=== PATIENT | female | born 1990 | race Two or more races ===

== ENCOUNTER 2018-01-26 13:31 | Outpatient (CLI) | payer MEDICAID ==
[2018-01-26 18:49] LABS: BASOPHILS % (AUTO) 0.4 %; EOSINOPHILS # (AUTO) 0.1 10^3/uL (0.0-0.7); EOSINOPHILS % (AUTO) 0.9 %; LYMPHOCYTES # (AUTO) 2.2 10^3/uL (1.5-3.5); LYMPHOCYTES % (AUTO) 26.8 %; MEAN CORPUSCULAR HGB CONC 32.9 g/dL (32.0-36.0); MEAN CORPUSCULAR VOLUME 87.9 fL (81.0-99.0); MEAN PLATELET VOLUME 11.3 fL (7.9-10.8); MONOCYTES # (AUTO) 0.5 10^3/uL (0.0-1.0); MONOCYTES % (AUTO) 6.3 %; NEUTROPHILS # (AUTO) 5.5 10^3/uL (1.5-6.6); NEUTROPHILS % (AUTO) 65.6 %; PLT - PLATELET COUNT 196 10^3/uL (130-450); RED BLOOD COUNT 4.49 10^6/uL (4.20-5.40); RED CELL DISTRIBUTION WIDTH 14.2 % (12.0-15.0); WHITE BLOOD COUNT 8.4 x10^3/uL (4.8-10.8)
[2018-01-26 19:26] LABS: ALBUMIN 4.2 g/dL (3.2-5.5); ALBUMIN/GLOBULIN RATIO 1.1 (1.0-2.2); BILIRUBIN,TOTAL 0.7 mg/dL (0.2-1.0); CALCIUM 8.6 mg/dL (8.5-10.3); CREATININE 0.6 mg/dL (0.4-1.0); TOTAL PROTEIN 7.9 g/dL (6.7-8.2)
[2018-01-26 19:38] LABS: THYROID STIMULATING HORMONE 0.78 uIU/mL (0.34-5.60)
[2018-01-26 19:49] LABS: FOLATE 8.28 ng/mL (5.90 - >24.8)
== END 2018-01-26 23:59 ==
LOC: LAB.N 13:31
PROVIDERS: ATTEND Nurse Practitioner
DX: R53.83 Other fatigue (principal); E55.9 Vitamin D deficiency, unspecified
CPT/HCPCS: 36415; 80053; 82306; 82607; 82746; 84443; 85025

== ENCOUNTER 2018-05-28 08:00 | Outpatient (CLI) | payer MEDICAID | END 2018-05-28 23:59 | disposition home or self-care (01) | LOC: LAB.R 08:00 | PROVIDERS: ATTEND Nurse Practitioner | DX: J03.90 Acute tonsillitis, unspecified (principal) | CPT/HCPCS: 87070 ==

== ENCOUNTER 2020-01-16 18:49 | Outpatient (CLI) | payer MEDICAID | END 2020-01-16 18:50 | disposition home or self-care (01) | LOC: COV 18:49 | PROVIDERS: ATTEND Family Medicine | DX: R50.9 Fever, unspecified (principal); R05 Cough; R06.02 Shortness of breath; M79.10 Myalgia, unspecified site; R53.83 Other fatigue; J02.9 Acute pharyngitis, unspecified; R19.7 Diarrhea, unspecified; R09.81 Nasal congestion; Z20.828 Contact with and (suspected) exposure to other viral communicable diseases ==

== ENCOUNTER 2020-04-10 08:00 | Outpatient (CLI) | payer MEDICAID ==
[2020-04-10 17:45] LABS: BILIRUBIN,URINE NEGATIVE (NEGATIVE); GLUCOSE, URINE (UA) NEGATIVE (NEGATIVE); KETONES,URINE (UA) NEGATIVE (NEGATIVE); LEUKOCYTE ESTERASE, URINE NEGATIVE (NEGATIVE); NITRITE,URINE NEGATIVE (NEGATIVE); OCCULT BLOOD,URINE SMALL (NEGATIVE); PH,URINE 6.5 PH (5.0-7.5); PROTEIN,URINE NEGATIVE (NEGATIVE); UROBILINOGEN,URINE 0.2 (NORMAL) E.U./dL (NORMAL)
[2020-04-10 17:46] LABS: CLARITY,URINE CLEAR (CLEAR)
[2020-04-10 17:59] LABS: BACTERIA,URINE Rare /HPF (None Seen); RBC,URINE 0-5 /HPF (0-5); SQUAMOUS EPITHELIAL CELL,UR RARE Squamous (<= Few)
== END 2020-04-10 23:59 | disposition home or self-care (01) ==
LOC: LAB.R 08:00
PROVIDERS: ATTEND Nurse Practitioner Obstetrics & Gynecology
DX: Z32.01 Encounter for pregnancy test, result positive (principal)
CPT/HCPCS: 81001; 87086

== ENCOUNTER 2020-04-25 11:35 | Outpatient (CLI) | payer MEDICAID ==
--- NOTE | 2020-04-25 18:40 | Ultrasound Report ---
PROCEDURE: OB First Trimester w/TV INDICATIONS: POSITIVE TEST OUTSIDE/PRIOR DATING DATA: Last menstrual period (LMP): 03/07/2020. LMP-based estimated date of delivery (KELVIN): 12/12/2020. First dating scan (date and location): Today. Estimated date of delivery (KELVIN) from first dating scan: 12/14/2020. TECHNIQUE: Real-time scanning was performed of the fetus and maternal pelvic organs, with image documentation. Endovaginal scanning was also performed to better visualize the fetus and maternal ovaries. COMPARISON: None FINDINGS: The uterus is anteverted. There is a single gestational sac noted within the endometrium. There is a small region of echogenicity encompassing less than 25% of the gestational sac consistent with perigestational hemorrhage. Embryo: There is a single living fetus with heart rate of 135 bpm. [place]-rump length correspon ds to gestational age of 6 weeks 5 days. There is a yolk sac measuring 4 mm in diameter. Measurement variability in dating: +/- 4 weeks by LMP, +/- 7 days by mean sac diameter (use before 6 weeks gestation if crown-rump length not able to be measured), +/- 5 days by crown-rump length (6-12 weeks gestation). Maternal organs: The right ovary and measures 5.0 x 3.3 x 3.1 cm. The left ovary measures 1.8 x 1.3 x 2.0 cm. Within the right ovary is an anechoic cystic lesion with subtle debris noted on a single ruth e favoring a retractile clot. This demonstrates peripheral vascularity. This measures 2.5 cm in great est diameter. An additional adjacent anechoic simple cyst likely representing a dominant follicle vinny suring 1.7 cm in greatest diameter. IMPRESSION: Single living intrauterine with heart rate of 135 bpm. Gestational age corresponds to 6 weeks 5 days by crown-rump length. Estimated date of delivery is 12/14/2020. Small amount of perigestational hemorrhage encompassing less than 25% of the gestational sac. This is a common finding. 2.5 cm hemorrhagic corpus luteal cyst in the right ovary along with an adjacent 1.7 cm dominant folli basil. Reviewed by: Servando Cook DO on 04/25/2020 5:39 PM [place] Approved by: Servando Cook DO on 04/25/2020 5:39 PM [place] Station ID: [id number]
== END 2020-04-25 11:36 | disposition home or self-care (01) ==
LOC: DI 11:35
PROVIDERS: ATTEND Nurse Practitioner Obstetrics & Gynecology
DX: Z32.01 Encounter for pregnancy test, result positive (principal)

== ENCOUNTER 2020-05-22 14:08 | Outpatient (CLI) | payer MEDICAID ==
[2020-05-22 18:36] LABS: BASOPHILS % (AUTO) 0.2 %; EOSINOPHILS # (AUTO) 0.1 10^3/uL (0.0-0.7); EOSINOPHILS % (AUTO) 0.9 %; HCT - HEMATOCRIT 36.2 % (37.0-47.0); HGB - HEMOGLOBIN 11.7 g/dL (12.0-16.0); LYMPHOCYTES % (AUTO) 19.7 %; MEAN CORPUSCULAR HEMOGLOBIN 27.4 pg (27.0-31.0); MEAN CORPUSCULAR HGB CONC 32.3 g/dL (32.0-36.0); MEAN CORPUSCULAR VOLUME 84.8 fL (81.0-99.0); MEAN PLATELET VOLUME 11.7 fL (7.9-10.8); MONOCYTES # (AUTO) 0.8 10^3/uL (0.0-1.0); MONOCYTES % (AUTO) 7.6 %; NEUTROPHILS # (AUTO) 7.3 10^3/uL (1.5-6.6); NEUTROPHILS % (AUTO) 71.1 %; PLT - PLATELET COUNT 214 10^3/uL (130-450); RED BLOOD COUNT 4.27 10^6/uL (4.20-5.40); RED CELL DISTRIBUTION WIDTH 14.6 % (12.0-15.0); WHITE BLOOD COUNT 10.3 x10^3/uL (4.8-10.8)
[2020-05-22 19:09] LABS: BUN - BLOOD UREA NITROGEN 10 mg/dL (6-20); CARBON DIOXIDE - CO2 24 mmol/L (21-32); CHLORIDE 105 mmol/L (101-111); CREATININE 0.4 mg/dL (0.4-1.0); GFR - MDRD 187 (>89); GLUCOSE 101 mg/dL (70-100); POTASSIUM 3.9 mmol/L (3.5-5.0); SODIUM 139 mmol/L (135-145)
[2020-05-22 19:10] LABS: ALBUMIN 3.2 g/dL (3.2-5.5); ALKALINE PHOSPHATASE 89 IU/L (42-121); ALT ALANINE AMINOTRANSFERASE 19 IU/L (10-60); AST ASPARTATE AMINOTRANSFERASE 18 IU/L (10-42); BILIRUBIN,TOTAL < 0.2 mg/dL (0.2-1.0); CALCIUM 9.3 mg/dL (8.5-10.3); TOTAL PROTEIN 6.3 g/dL (6.7-8.2)
[2020-05-22 20:08] LABS: ESTIMATED AVERAGE GLUCOSE 100 mg/dL (70-100); HEMOGLOBIN A1c% 5.1 % (4.27-6.07)
[2020-05-23 09:01] LABS: HIV AG/AB 4TH GEN NON-REACTIVE (NON-REACTIVE)
[2020-05-23 14:11] LABS: HEPATITIS B SURFACE ANTIGEN NON-REACTIVE (NON-REACTIVE)
[2020-05-23 14:25] LABS: HEPATITIS C ANTIBODY NON-REACTIVE (NON-REACTIVE)
== END 2020-05-22 23:59 | disposition home or self-care (01) ==
LOC: LAB.WCP 14:08
PROVIDERS: ATTEND Obstetrics & Gynecology
DX: O21.0 Mild hyperemesis gravidarum (principal); O10.919 Unspecified pre-existing hypertension complicating pregnancy, unspecified trimester; Z36.89 Encounter for other specified antenatal screening
CPT/HCPCS: 36415; 80053; 83036; 85025; 86592; 86762; 86787; 86803; 86850; 86900; 86901; 87340; 87389

== ENCOUNTER 2020-06-17 08:00 | Outpatient (CLI) | payer MEDICAID ==
[2020-06-17 20:53] LABS: BACTERIAL VAGINOSIS DNA POSITIVE (NEGATIVE); CANDIDA GLABRATA DNA NEGATIVE (NEGATIVE); CANDIDA GROUP DNA POSITIVE (NEGATIVE); CANDIDA KRUSEI DNA NEGATIVE (NEGATIVE); TRICHOMONAS VAGINALIS DNA NEGATIVE (NEGATIVE)
== END 2020-06-17 23:59 | disposition home or self-care (01) ==
LOC: LAB.R 08:00
PROVIDERS: ATTEND Nurse Practitioner Obstetrics & Gynecology
DX: O09.90 Supervision of high risk pregnancy, unspecified, unspecified trimester (principal); O99.891 Other specified diseases and conditions complicating pregnancy; N89.8 Other specified noninflammatory disorders of vagina
CPT/HCPCS: 87661; 87801

== ENCOUNTER 2020-06-30 14:32 | Outpatient (CLI) | payer MEDICAID ==
[2020-07-03 04:36] LABS: AFP MOM 1.02; AGE RISK DOWN SYNDROME 1 IN 659; CALC'D GESTATIONAL AGE 16.4 weeks; CIGARETTE SMOKER? NOT GIVEN; DONOR AGE: EGG RETRIEVAL NOT GIVEN; DONOR EGG NO; ESTRIOL MOM 1.31; HCG MOM 1.61; HX OF NEURAL TUBE DEFECTS NO; INHIBIN A MOM 2.05; INSULIN DEPEND DIABETIC NO; MATERNAL WEIGHT 218 lbs; MSS DOWN SYNDROME RISK 1 IN 598; MSS3 TRISOMY 18 RISK <1 IN 5000; NUMBER OF FETUSES 1; PREV PREGNANCY DOWN SYND NO; RISK FOR ONTD <1 IN 5000
== END 2020-06-30 14:33 | disposition home or self-care (01) ==
LOC: LAB.N 14:32
PROVIDERS: ATTEND Obstetrics & Gynecology
DX: O09.899 Supervision of other high risk pregnancies, unspecified trimester (principal); O99.891 Other specified diseases and conditions complicating pregnancy; N89.8 Other specified noninflammatory disorders of vagina
CPT/HCPCS: 36415; 81511

== ENCOUNTER 2020-07-27 09:54 | Outpatient (CLI) | payer MEDICAID ==
--- NOTE | 2020-07-27 15:17 | Ultrasound Report ---
PROCEDURE: OB Detailed Eval INDICATIONS: VAGINAL DISCHARGE, SUPERVISION OF HIGH RISK PREG OUTSIDE/PRIOR DATING DATA: Last menstrual period (LMP): 03/07/2020. LMP-based estimated date of delivery (KELVIN): 12/12/2020. First dating scan (date and location): 04/25/2020. Estimated date of delivery (KELVIN) from first dating scan: 12/14/2020. KELVIN stated by the provider: 12/12/2020 TECHNIQUE: Real-time scanning was performed of the fetus, with image documentation and biometric measurements. Endovaginal scanning: Not needed COMPARISON: 04/25/2020 OB ultrasound FINDINGS: General: A single living intrauterine gestation is present. Presentation: Vertex Placenta: Placental position is fundal, and shows no previa. Amniotic fluid index: 10.1 cm, normal for gestational age. heart rate: 141 beats per minute. Maternal cervical canal: 3.9 cm long; normal length is 2.5 cm or more. biometrics: Biparietal diameter: 4.4 cm, 19 weeks 3 days Head circumference: 71.1 cm, 19 weeks 5 days Abdominal circumference: 15.7 cm, 20 weeks 6 days Femur length: 3.4 cm, 20 weeks 6 days Estimated gestational age from initial scan: not applicable. Composite gestational age from present scan: 20 weeks 2 days Estimated weight and percentile: 367 g, 65.7 percentile Measurement variability in biometric dating: +/- 10 days from 12-20 weeks gestation, +/- 2 weeks from 20-30 weeks gestation, +/- 3 weeks at 30 weeks gestation or later. Anatomic survey: Neuro: Ventricles are normal at less than 10 mm. Cisterna magna is normal at 3-11 mm. Cerebellum i s normal in size and morphology. Nuchal skin fold: Normal at less than 6 mm between 14 and 20 weeks gestational age. Face: Nose and lips, facial profile are normal. Spine: No evidence for spina bifida. Heart: 4-chambered heart is present, with normal ventricular outflow tracts. Diaphragm: Diaphragm is intact. Stomach: Left-sided stomach is present. Kidneys: No hydronephrosis. Normal is less than 5 mm in 2nd trimester, less than 7 mm in 3rd trimester. Cord: 3 vessel cord has orthotopic insertion. Bladder: Normal in size. Extremities: All 4 extremities are visualized. IMPRESSION: Normal anatomic survey, appropriate interval growth. Current HARRISON of 10.1 cm is at the lower 8.2 percentile. Reviewed by: Yunior Mckeon MD on 07/27/2020 3:16 PM PDT Approved by: Yunior Mckeon MD on 07/27/2020 3:16 PM PDT Station ID: [id number]
== END 2020-07-27 09:55 | disposition home or self-care (01) ==
LOC: DI 09:54
PROVIDERS: ATTEND Obstetrics & Gynecology
DX: O09.92 Supervision of high risk pregnancy, unspecified, second trimester (principal); N89.8 Other specified noninflammatory disorders of vagina; Z3A.20 20 weeks gestation of pregnancy

== ENCOUNTER 2020-09-01 08:00 | Outpatient (CLI) | payer MEDICAID ==
[2020-09-01 18:45] LABS: HCT - HEMATOCRIT 36.4 % (37.0-47.0); HGB - HEMOGLOBIN 11.6 g/dL (12.0-16.0); MEAN CORPUSCULAR HEMOGLOBIN 28.1 pg (27.0-31.0); MEAN CORPUSCULAR HGB CONC 31.9 g/dL (32.0-36.0); MEAN CORPUSCULAR VOLUME 88.1 fL (81.0-99.0); MEAN PLATELET VOLUME 12.8 fL (7.9-10.8); RED BLOOD COUNT 4.13 10^6/uL (4.20-5.40); RED CELL DISTRIBUTION WIDTH 14.6 % (12.0-15.0); WHITE BLOOD COUNT 13.1 x10^3/uL (4.8-10.8)
== END 2020-09-01 23:59 | disposition home or self-care (01) ==
LOC: LAB.WCP 08:00
PROVIDERS: ATTEND Obstetrics & Gynecology
DX: O09.899 Supervision of other high risk pregnancies, unspecified trimester (principal)
CPT/HCPCS: 36415; 82950; 85025; 85027; 86592; 86762; 86850; 86900; 86901; 87340; 87389

== ENCOUNTER 2020-09-08 15:48 | Outpatient (CLI) | payer MEDICAID ==
--- NOTE | 2020-09-10 08:38 | Ultrasound Report ---
PROCEDURE: OB Limited INDICATIONS: HIgh risk OUTSIDE/PRIOR DATING DATA: Last menstrual period (LMP): 03/07/2020. LMP-based estimated date of delivery (KELVIN): 12/12/2020. First dating scan (date and location): 04/25/2020. Estimated date of delivery (KELVIN) from first dating scan: 12/14/2020. The below data below was generated using the provider stated KELVIN of 12/12/2020 TECHNIQUE: Real-time scanning was performed of the fetus, with image documentation. Endovaginal scanning: Not performed COMPARISON: 04/25/2020, 07/27/2020 FINDINGS: A single living intrauterine gestation is present. Presentation: Transverse, variable Placenta: Placental position is fundal to the maternal right, without previa. Amniotic fluid index: 11.1 cm, normal for gestational age. Largest pocket is 5.9 cm heart rate: 135 beats per minutes. Maternal cervical canal: 3.4 cm long; normal length is 2.5 cm or more. Estimated gestational age from initial scan: 26 weeks 3 days. IMPRESSION: 1. Single living intrauterine at 26 weeks, 3 days with a normal quantity of amniotic fluid. 2. HARRISON is 11.1 cm. Reviewed by: Imelda Urbano MD on 09/10/2020 8:37 AM PDT Approved by: Imelda Urbano MD on 09/10/2020 8:37 AM PDT Station ID: [id number]
== END 2020-09-08 15:49 | disposition home or self-care (01) ==
LOC: DI 15:48
PROVIDERS: ATTEND Obstetrics & Gynecology
DX: O09.92 Supervision of high risk pregnancy, unspecified, second trimester (principal); Z3A.26 26 weeks gestation of pregnancy

== ENCOUNTER 2020-09-09 08:00 | Outpatient (CLI) | payer MEDICAID ==
[2020-09-10 14:57] LABS: BILIRUBIN,URINE NEGATIVE (NEGATIVE); GLUCOSE, URINE (UA) NEGATIVE (NEGATIVE); KETONES,URINE (UA) NEGATIVE (NEGATIVE); LEUKOCYTE ESTERASE, URINE NEGATIVE (NEGATIVE); NITRITE,URINE NEGATIVE (NEGATIVE); OCCULT BLOOD,URINE NEGATIVE (NEGATIVE); PH,URINE 7.5 PH (5.0-7.5); PROTEIN,URINE NEGATIVE (NEGATIVE); UROBILINOGEN,URINE 0.2 (NORMAL) E.U./dL (NORMAL)
[2020-09-10 15:00] LABS: CLARITY,URINE CLEAR (CLEAR)
[2020-09-10 15:17] LABS: WBC,URINE 0-3 /HPF (0-5)
[2020-09-10 15:18] LABS: BACTERIA,URINE Few /HPF (None Seen); RBC,URINE 0-5 /HPF (0-5); SQUAMOUS EPITHELIAL CELL,UR MOD Squamous (<= Few)
[2020-09-10 21:03] LABS: BACTERIAL VAGINOSIS DNA NEGATIVE (NEGATIVE); CANDIDA GLABRATA DNA NEGATIVE (NEGATIVE); CANDIDA GROUP DNA NEGATIVE (NEGATIVE); CANDIDA KRUSEI DNA NEGATIVE (NEGATIVE); TRICHOMONAS VAGINALIS DNA NEGATIVE (NEGATIVE)
[2020-09-10 21:45] LABS: CHLAMYDIA TRACHOMATIS DNA NEGATIVE (NEGATIVE); NEISSERIA GONORRHOEAE DNA NEGATIVE (NEGATIVE); TRICHOMONAS VAGINALIS DNA NEGATIVE (NEGATIVE)
== END 2020-09-09 23:59 | disposition home or self-care (01) ==
LOC: LAB.R 08:00
PROVIDERS: ATTEND Nurse Practitioner Obstetrics & Gynecology
DX: R39.15 Urgency of urination (principal); N76.0 Acute vaginitis
CPT/HCPCS: 81001; 87086; 87491; 87591; 87661; 87801

== ENCOUNTER 2020-10-01 07:29 | Outpatient (CLI) | payer MEDICAID ==
[2020-10-01 07:49] VITALS: BP 92/69
[2020-10-01 08:55] LABS: BILIRUBIN,URINE NEGATIVE (NEGATIVE); CLARITY,URINE CLEAR (CLEAR); GLUCOSE, URINE (UA) NEGATIVE (NEGATIVE); KETONES,URINE (UA) NEGATIVE (NEGATIVE); LEUKOCYTE ESTERASE, URINE NEGATIVE (NEGATIVE); NITRITE,URINE NEGATIVE (NEGATIVE); OCCULT BLOOD,URINE NEGATIVE (NEGATIVE); PROTEIN,URINE NEGATIVE (NEGATIVE); UROBILINOGEN,URINE 0.2 (NORMAL) E.U./dL (NORMAL)
--- NOTE | 2020-10-01 09:48 | Ultrasound Report ---
PROCEDURE: OB Transvaginal INDICATIONS: rule out PTL OUTSIDE/PRIOR DATING DATA: Last menstrual period (LMP): 03/07/2020. LMP-based estimated date of delivery (KELVIN): 12/12/2020. First dating scan (date and location): 04/25/2020. Estimated date of delivery (KELVIN) from first dating scan: 12/14/2020. The below data below was generated using the clinical (provider stated) KELVIN of 12/12/2020 TECHNIQUE: Real-time scanning was performed of the fetus and cervix, with image documentation utilizing endovagi nal scanning only. COMPARISON: 09/08/2020 FINDINGS: A single living intrauterine gestation is present. Presentation: Transverse/variable Placenta: Placental position is fundal and right-sided, without previa. Amniotic fluid index: 11.1 cm, within normal limits for gestational age. heart rate: 135 beats per minutes. Maternal cervical canal: 3.4 cm long; normal length is 2.5 cm or more. Estimated gestational age from initial scan: 26 weeks 3 days. IMPRESSION: Limited transvaginal ultrasound demonstrates a living fetus, which is at the junction be tween the second and third trimester. The cervix is long and closed. Reviewed by: Sammy Rodney MD on 10/01/2020 9:46 AM PDT Approved by: Sammy Rodney MD on 10/01/2020 9:46 AM PDT Station ID: [id number]
[2020-10-01 21:27] LABS: CHLAMYDIA TRACHOMATIS DNA NEGATIVE (NEGATIVE); NEISSERIA GONORRHOEAE DNA NEGATIVE (NEGATIVE); TRICHOMONAS VAGINALIS DNA NEGATIVE (NEGATIVE)
--- NOTE | 2020-10-19 19:04 | PROVIDER PROGRESS NOTE ---
- HPI Chief Complaint: Labor Current : Current EDU 12/12/20 Gestation 29 Weeks and 5 Days 5 Para 3 Vital Signs Temperature 98.6 F 10/01/20 07:48 Heart Rate 93 10/01/20 07:48 Respiratory Rate 20 10/01/20 07:48 Blood Pressure 92/69 10/01/20 07:48 O2 Saturation 97 10/01/20 07:48 Temperature 98.6 F 10/01/20 07:51 Heart Rate 93 10/01/20 07:48 Respiratory Rate 20 10/01/20 07:48 Blood Pressure 92/69 10/01/20 07:48 O2 Saturation 97 10/01/20 07:48 - Procedures NST Procedure: NST Procedure Start Date 10/01/20 Start Time 07:37 Stop Time 08:20 Vibroacoustic Stimulation Used No Patient States Movement Yes - Plan Plan: ID: Patient is a 29 yo at 29+5 wga sent from clinic for assessment of labor. HPI: Patient reports painful cramping. No LOF or VB. PNC: LMP: 03/07/2020 KELVIN by LMP: 12/12/2020 Initial U/S: @ 6.5wks gestation c/w LMP dating. KELVIN 12/12/2020 by LMP FINAL KELVIN: 12/12/2020 O Positive, Rubella Immune VZV: Immune Genetic testing: Quad screen Normal FAS: 07/27/20 EFW 65.7%ile, 3VC, fundal CL 3.4 Glucola 135 Influenza: TDAP 09/16/2020 GBS @ 36wks HSV: Denies for self and partner Breast pump Rx - printed 09/16/20 MOD: rLTCS with BTL Signed [facility] papers and has copy for herself on 08/19/20 pp contraception: BT Past Medical History: Anxiety Disorder Depression Obesity Seasonal allergies Past Surgical History: 3 ROS: As per HPI, otherwise remaining systems are negative PE: VS: 98.6 93 92/69 20 97 GEN: NAD HEENT: NCAT RESP: nl effort CV: RR ABD: gravid, S&NT EXT: WWP PSYCH: appropriate affect NEURO: A&O EFM 150 mod flori 15x15 accels no decels; AGA TOCO: quiet SVE: deferred given reassuring labs, us, and toco A/P:Patient is a 29 yo at 29+5 wga sent from clinic for assessment of labor. Reassuring assessment with regard to labor: -Neg FFN and CL 4.01 cm (NOTE: REPORT INACCURATELY REPORTING ON 09/08/20 IMAGES. THIS PROVIDER REVIEWED IMAGES PERSONALLY) -UA wnl - GCCT neg -Quiet toco and Cat I/AGA tracing -Discharged to home Fu with routine ob care
== END 2020-10-01 09:30 | disposition home or self-care (01) ==
LOC: WFO 07:29 → FBP 07:31 → WFO 09:30
PROVIDERS: ATTEND Obstetrics & Gynecology
DX: O60.03 Preterm labor without delivery, third trimester (principal); Z3A.29 29 weeks gestation of pregnancy; Z86.59 Personal history of other mental and behavioral disorders
CPT/HCPCS: 36415; 59025; 81001; 81003; 82731; 87086; 87491; 87591; 87661; 99214; 99215

== ENCOUNTER 2020-10-19 10:40 | Outpatient (CLI) | payer MEDICAID ==
[2020-10-19 11:53] VITALS: BP 100/62
[2020-10-19 12:33] LABS: RUPTURE OF MEMBRANES PLUS NEGATIVE (NEGATIVE)
--- NOTE | 2020-10-19 16:15 | Ultrasound Report ---
PROCEDURE: OB Limited INDICATIONS: Rule-out pre-term labor at 32.2 weeks gestation OUTSIDE/PRIOR DATING DATA: Last menstrual period (LMP): 03/07/2020. LMP-based estimated date of delivery (KELVIN): 12/12/2020. First dating scan (date and location): 04/25/2020. Estimated date of delivery (KELVIN) from first dating scan: 12/14/2020. The below data below was generated using the LMP KELVIN of 12/12/2020 TECHNIQUE: Real-time scanning was performed of the fetus, with image documentation. Endovaginal scanning: Performed COMPARISON: 04/25/2020 and 07/27/2020. FINDINGS: A single living intrauterine gestation is present. Presentation: Transverse Placenta: Placental position is right fundal, without previa. Amniotic fluid index: 11.1 cm, normal 5-24 cm. Largest pocket 5.9 cm. heart rate: 135 beats per minutes. Maternal cervical canal: Closed 3.4 cm long; normal length is 2.5 cm or more. Estimated gestational age from initial scan: 26 weeks 3 days. IMPRESSION: 1. Single living intrauterine . 2. Normal amniotic fluid index. 3. Cervix closed and 3.4 cm in length. Reviewed by: Radha Arrieta MD, PhD on 10/19/2020 4:13 PM PDT Approved by: Radha Arrieta MD, PhD on 10/19/2020 4:13 PM PDT Station ID: [id number]
--- NOTE | 2020-10-19 18:57 | PROVIDER PROGRESS NOTE ---
- HPI Chief Complaint: Labor Current : Current EDU 12/12/20 Gestation 32 Weeks and 2 Days 5 Para 3 Vital Signs Temperature 98.8 F 10/19/20 10:55 Heart Rate 92 10/19/20 10:55 Respiratory Rate 19 10/19/20 10:55 Blood Pressure 100/62 10/19/20 10:55 O2 Saturation 97 10/19/20 10:55 Temperature 98.8 F 10/19/20 10:55 Heart Rate 92 10/19/20 10:55 Respiratory Rate 19 10/19/20 10:55 Blood Pressure 100/62 10/19/20 10:55 O2 Saturation 97 10/19/20 10:55 - Procedures OB Procedure Performed: NST NST Procedure: NST Procedure Start Date 10/19/20 Start Time 12:21 Stop Time 12:41 Vibroacoustic Stimulation Used No Patient States Movement Yes Service Date of procedure: 10/19/20 - Plan Plan: ID: Patient is a 29 yo at 32+2 wga sent from clinic for assessment of labor. HPI: Patient was seen in clinic today for routine care. Again reported continued intermittent back pain. had IC last night and also had a lot of fluid/discharge concerning for leakage but no continued LOF. Back pain wakes her up every 1-2 hours at night. IC was cramping during activity, not so much after wards. No VB. Concerned she is laboring. Endorses FM. PNC: LMP: 03/07/2020 KELVIN by LMP: 12/12/2020 Initial U/S: @ 6.5wks gestation c/w LMP dating. KELVIN 12/12/2020 by LMP FINAL KELVIN: 12/12/2020 O Positive, Rubella Immune VZV: Immune Genetic testing: Quad screen Normal FAS: 07/27/20 EFW 65.7%ile, 3VC, fundal CL 3.4 Glucola 135 Influenza: TDAP 09/16/2020 GBS @ 36wks HSV: Denies for self and partner Breast pump Rx - printed 09/16/20 MOD: rLTCS with BTL Signed [facility] papers and has copy for herself on 08/19/20 pp contraception: BT Past Medical History: Anxiety Disorder Depression Obesity Seasonal allergies Past Surgical History: 3 ROS: As per HPI, otherwise remaining systems are negative PE: VS: 98.8 92 100/62 19 GEN: NAD HEENT: NCAT RESP: nl effort CV: RR ABD: gravid, S&NT EXT: WWP PSYCH: appropriate affect NEURO: A&O EFM 145 mod flori 15x15 accels no decels TOCO: quiet SVE: deferred given reassuring labs, us, and toco A/P:Patient is a 29 yo at 32+2 wga sent from clinic for assessment of labor. Reassuring assessment with regard to labor: -Neg FFN and CL 3.4 cm -Neg ROM+ -HARRISON 11.1 -Quiet toco and Cat I tracing -Vaginitis panel, GBS, and GCCT pending -Discharged to home Fu with routine ob care
[2020-10-19 20:10] LABS: BACTERIAL VAGINOSIS DNA NEGATIVE (NEGATIVE); CANDIDA GLABRATA DNA NEGATIVE (NEGATIVE); CANDIDA GROUP DNA NEGATIVE (NEGATIVE); CANDIDA KRUSEI DNA NEGATIVE (NEGATIVE); TRICHOMONAS VAGINALIS DNA NEGATIVE (NEGATIVE)
[2020-10-19 21:33] LABS: CHLAMYDIA TRACHOMATIS DNA NEGATIVE (NEGATIVE); NEISSERIA GONORRHOEAE DNA NEGATIVE (NEGATIVE); TRICHOMONAS VAGINALIS DNA NEGATIVE (NEGATIVE)
== END 2020-10-19 13:47 | disposition home or self-care (01) ==
LOC: WFO 10:40 → FBP 10:41 → WFO 13:47
PROVIDERS: ATTEND Obstetrics & Gynecology
DX: O60.03 Preterm labor without delivery, third trimester (principal); O34.219 Maternal care for unspecified type scar from previous cesarean delivery; Z3A.32 32 weeks gestation of pregnancy
CPT/HCPCS: 36415; 59025; 82731; 84112; 87491; 87591; 87661; 87797; 87801; 99214; 99215

== ENCOUNTER 2020-11-04 10:12 | Outpatient (CLI) | payer MEDICAID ==
[2020-11-04 10:30] VITALS: BP 108/62
--- NOTE | 2020-11-04 14:55 | PROCEDURE REPORT ---
- HPI Diagnosis/Indication for NST: Decreased movement (Patient complained of decreased motion. She also had some low back discomfort. Upon arrival both of these symptoms had resolved she noted good motion as well as no back cramping.) Current EDU 12/12/20 Gestation 34 Weeks and 4 Days 5 Para 3 Vital Signs Temperature 36.7 C 11/04/20 10:28 Heart Rate 103 H 11/04/20 10:28 Respiratory Rate 18 11/04/20 10:28 Blood Pressure 108/62 11/04/20 10:28 O2 Saturation 99 11/04/20 10:28 Temperature 36.7 C 11/04/20 10:28 Heart Rate 103 H 11/04/20 10:28 Respiratory Rate 18 11/04/20 10:28 Blood Pressure 108/62 11/04/20 10:28 O2 Saturation 99 11/04/20 10:28 - NST Procedure NST Procedure Start Date 11/04/20 Start Time 10:22 Stop Time 10:55 Vibroacoustic Stimulation Used No Patient States Movement Yes - Results and Plan Findings/Impression: DOS base October Baseline is40. Patient has reactive episodes 15 x 15. No decelerations are seen. No contractions are noted on the strip. Reactive NST. Plan: Cautioned regarding motion contractions. Patient will continue with care.
== END 2020-11-04 11:30 | disposition home or self-care (01) ==
LOC: WFO 10:12 → FBP 10:14 → WFO 11:30
PROVIDERS: ATTEND Obstetrics & Gynecology
DX: O36.8130 Decreased fetal movements, third trimester, not applicable or unspecified (principal); Z3A.34 34 weeks gestation of pregnancy
CPT/HCPCS: 59025

== ENCOUNTER 2020-11-13 17:48 | Outpatient (CLI) | payer MEDICAID ==
[2020-11-13 18:04] VITALS: BP 134/75
[2020-11-13] MEDS ORDERED: LACTATED RINGERS 1,000 ML IV ONE ×2 (18:24→18:31)
--- NOTE | 2020-11-13 19:55 | PROVIDER PROGRESS NOTE ---
- HPI Chief Complaint: Labor Check (Patient having lower abdominal pain on and off for 3 days.) Current : Current EDU 12/12/20 Gestation 35 Weeks and 6 Days 4 Para 3 Vital Signs Temperature 98.4 F 11/13/20 18:03 Heart Rate 121 H 11/13/20 18:03 Respiratory Rate 20 11/13/20 18:03 Blood Pressure 134/75 H 11/13/20 18:03 O2 Saturation 100 11/13/20 18:03 Temperature 98.4 F 11/13/20 18:04 Heart Rate 92 11/13/20 19:46 Respiratory Rate 20 11/13/20 18:03 Blood Pressure 134/75 H 11/13/20 18:03 O2 Saturation 100 11/13/20 18:03 - Exam Subjective: Patient presented to labor and delivery due to pain that comes and goes for 2-3 days. Patient was seen in office on Monday by Dr. Brown. Patient reports vomiting just prior to coming to hospital. Patient reports good movement. Patient is having some suprapubic pain that comes and goes. Patient denies SROM or vaginal bleeding. Physical Exam: General: Patient is resting comfortably on her side. Chest: Clear to auscultation. Good breath sounds in all catalan. Heart: Initially had heart rate in one hundred and teens on admission. Abdomen: Soft, gravid, non-tender to palpation. Extremities: No edema, no calf tenderness Monitor strip: No contractions seen. heart rate baseline is 140 with moderate variability and accelerations of 15X15 present. No decelerations. Reactive NST and Category I strip. Discussed with patient that dehydration most likely caused her heart rate to be increased on admission. During my exam is was in the 90's. Discussed she may have UTI and w need a urine to check for infection. Discussed labor precautions. A-IUP 35 6/7 with 3 prior Sections. P-Obtain urine for Urinalysis and culture if indicated. Finish 1 liter of IV fluids. Keep her appointment with Dr. Brown next week. Will call her with urine results tomorrow. - Procedures OB Procedure Performed: NST NST Procedure: NST Procedure Start Time 10:22 Stop Time 10:55 NST: Baseline is 140 with moderate variability, Accelerations of 15X15. No contractions seen. No decelerations seen. Category I monitor strip. Reactive NST.
[2020-11-13 20:14] LABS: BILIRUBIN,URINE NEGATIVE (NEGATIVE); GLUCOSE, URINE (UA) NEGATIVE (NEGATIVE); KETONES,URINE (UA) NEGATIVE (NEGATIVE); LEUKOCYTE ESTERASE, URINE NEGATIVE (NEGATIVE); NITRITE,URINE NEGATIVE (NEGATIVE); OCCULT BLOOD,URINE NEGATIVE (NEGATIVE); PROTEIN,URINE NEGATIVE (NEGATIVE); UROBILINOGEN,URINE 0.2 (NORMAL) E.U./dL (NORMAL)
[2020-11-13 20:16] LABS: CLARITY,URINE CLEAR (CLEAR)
== END 2020-11-13 20:20 | disposition home or self-care (01) ==
LOC: WFO 17:48 → FBP 17:49 → WFO 20:20
PROVIDERS: ATTEND Obstetrics & Gynecology
DX: O99.891 Other specified diseases and conditions complicating pregnancy (principal); R10.2 Pelvic and perineal pain; R00.0 Tachycardia, unspecified; O21.9 Vomiting of pregnancy, unspecified; Z3A.35 35 weeks gestation of pregnancy
CPT/HCPCS: 59025; 81003; 96360; 99215; J7120; 81001; 87086; 99214

== ENCOUNTER 2020-11-18 08:00 | Outpatient (CLI) | payer MEDICAID | END 2020-11-18 23:59 | disposition home or self-care (01) | LOC: LAB.WC 08:00 | PROVIDERS: ATTEND Obstetrics & Gynecology | DX: Z36.85 Encounter for antenatal screening for Streptococcus B (principal) | CPT/HCPCS: 87797 ==

== ENCOUNTER 2020-11-25 14:05 | Outpatient (CLI) | payer MEDICAID ==
--- NOTE | 2020-11-25 14:47 | PROVIDER PROGRESS NOTE ---
- HPI Chief Complaint: Decreased movement Current : Vital Signs Temperature 98.4 F 11/25/20 14:29 Respiratory Rate 16 11/25/20 14:29 Temperature 98.4 F 11/25/20 14:29 Heart Rate Respiratory Rate 16 11/25/20 14:29 Blood Pressure O2 Saturation - Exam 29 yo at 37 5/7 with decreased movement for 2 days. She states she feels movement, not as much as she is use to feeling. Patient denies contractions. Patient states her eyes felt heavy yesterday, but they are better today. Patient has headaches that come and go and is not having one today. Patient wears her support belt. Patient states she is feeling movement while on monitor. O General: lying on stretcher and appears comfortable. Chest: Clear to auscultation. Good breath sounds in all catalan. Heart: RRR without murmur or gallop. Abdomen: Soft, gravid, non-tender to palpation. Appears to have a large abdomen for gestational age. Extremties: No edema, no calf tenderness. Neuro: Alert and oriented times three. DTR's performed by RN are +2/+4 NST: FHT's baseline is 140 with moderate variability. Accelerations of 15X15 are present. No contractions. No decelerations. Reactive NST and Category I monitor strip. A-IUP 37 5/7, Priior times three. Decreased movement, resolved. P- Discussed comfort measures. Continue to wear support belt and stay well hydrated. May use Tylenol for headache. Keep all clinic appointments. - Procedures OB Procedure Performed: NST Diagnosis/Indication for NST: Decreased movement NST Procedure: NST Procedure Start Time 18:03 Stop Time 18:33
--- NOTE | 2020-11-25 14:50 | PROCEDURE REPORT ---
- HPI Vital Signs Temperature 98.4 F 11/25/20 14:29 Respiratory Rate 16 11/25/20 14:29 Temperature 98.4 F 11/25/20 14:29 Heart Rate Respiratory Rate 16 11/25/20 14:29 Blood Pressure O2 Saturation - NST Procedure NST Procedure Start Time 18:03 Stop Time 18:33 29 yo at 37 5/7 with Decreased movement. NST: Baseline FHT's 140 with moderate variability and Accelerations of 15X15 are present. No decelerations. No contractions. Reactive NST and Category I monitor strip.
[2020-11-25 15:29] VITALS: BP 114/77
== END 2020-11-25 14:50 | disposition home or self-care (01) ==
LOC: WFO 14:05 → FBP 14:06 → WFO 14:50
PROVIDERS: ATTEND Obstetrics & Gynecology
DX: O36.8130 Decreased fetal movements, third trimester, not applicable or unspecified (principal); O34.219 Maternal care for unspecified type scar from previous cesarean delivery; Z3A.37 37 weeks gestation of pregnancy
CPT/HCPCS: 59025; 99213

== ENCOUNTER 2020-12-04 15:06 | Outpatient (CLI) | payer MEDICAID | END 2020-12-04 15:07 | disposition home or self-care (01) | LOC: COV 15:06 | PROVIDERS: ATTEND Obstetrics & Gynecology | DX: Z01.812 Encounter for preprocedural laboratory examination (principal); O34.211 Maternal care for low transverse scar from previous cesarean delivery; Z20.822 Contact with and (suspected) exposure to COVID-19 ==

== ENCOUNTER 2020-12-08 06:08 | Inpatient (IN) | payer MEDICAID ==
[2020-12-08 06:44] LABS: BASOPHILS % (AUTO) 0.3 %; EOSINOPHILS # (AUTO) 0.1 10^3/uL (0.0-0.7); EOSINOPHILS % (AUTO) 0.5 %; HCT - HEMATOCRIT 35.2 % (37.0-47.0); HGB - HEMOGLOBIN 11.3 g/dL (12.0-16.0); LYMPHOCYTES # (AUTO) 2.7 10^3/uL (1.5-3.5); LYMPHOCYTES % (AUTO) 21.8 %; MEAN CORPUSCULAR HGB CONC 32.1 g/dL (32.0-36.0); MEAN CORPUSCULAR VOLUME 81.1 fL (81.0-99.0); MEAN PLATELET VOLUME 12.7 fL (7.9-10.8); MONOCYTES # (AUTO) 0.7 10^3/uL (0.0-1.0); NEUTROPHILS # (AUTO) 8.8 10^3/uL (1.5-6.6); PLT - PLATELET COUNT 193 10^3/uL (130-450); RED BLOOD COUNT 4.34 10^6/uL (4.20-5.40); RED CELL DISTRIBUTION WIDTH 14.6 % (12.0-15.0); WHITE BLOOD COUNT 12.4 x10^3/uL (4.8-10.8)
[2020-12-08] MEDS ORDERED: LACTATED RINGERS 1,000 ML IV SCH ×2 (07:00→11:00)
[2020-12-08] MEDS ORDERED: LACTATED RINGERS 1,000 ML IV ONE (07:05)
--- NOTE | 2020-12-08 07:55 | ANESTHESIA ---
Pre-Anesthesia VS, & Labs - Diagnosis Previous section, desires sterilization - Procedure Repeat section with Bilateral tubal ligation Vital Signs: Temp Pulse Resp BP Pulse Ox 36.8 C 95 20 127/89 H 100 12/08/20 07:29 12/08/20 07:29 12/08/20 07:29 12/08/20 07:29 12/08/20 06:41 Height: 5 ft 5 in Weight (kg): 115.031 kg Body Mass Index: 42.2 BMI Classification: Morbidly Obese - NPO >8 hours - Is Patient ?: Yes - Lab Results Current Lab Results: Laboratory Tests 12/08/20 06:30: Blood Type O POSITIVE, Antibody Screen NEGATIVE, Crossmatch IS Only See Detail 12/08/20 06:25: WBC 12.4 H, RBC 4.34, Hgb 11.3 L, Hct 35.2 L, MCV 81.1, MCH 26.0 L, MCHC 32.1, RDW 14.6, Plt Count 193, MPV 12.7 H, Neut # (Auto) 8.8 H, Lymph # (Auto) 2.7, Tyrrell # (Auto) 0.7, Eos # (Auto) 0.1, Baso # (Auto) 0.0, Absolute Nucleated RBC 0.00, Nucleated RBC % 0.0 Lab results reviewed: Yes Fish Bones: 12/08/20 06:25 Home Medications and Allergies Active Medications Acetaminophen (Acetaminophen 500 Mg Tablet) 1,000 mg PO ONCE RAKEL Stop: 12/09/20 07:59 Cefazolin Sodium 2 gm/ Sodium (Chloride) 100 mls @ 200 mls/hr IV ONCE ONE Stop: 12/08/20 08:29 Lactated Ringer's (Lr) 1,000 mls @ 0 mls/hr IV .Q0M RAKEL Last Admin: 12/08/20 07:10 Dose: 30 mls/hr Documented by: Allergies/Adverse Reactions: Allergies Allergy/AdvReac Type Severity Reaction Status Date / Time No Known Drug Allergies Allergy Verified 12/08/20 00:43 Anes History & Medical History - Anesthetic History Anesthesia Complications: reports: Other-see comment (PDPH after 2nd c section) Family history of Anesthesia Complications: Denies Family history of Malignant Hyperthermia: Denies - Medical History Cardiovascular: reports: Hypertension Pulmonary: reports: None Smoking Status: Never smoker Exam General: Alert, Oriented x3, Cooperative, No acute distress Dental: WNL Mouth Openin Fingerbreadth Neck Mobility: Normal Mallampati classification: II Respiratory: Lungs clear, Normal breath sounds, No respiratory distress, No accessory muscle use Cardiovascular: Regular rate, Normal S1, Normal S2, No murmurs Plan Anesthesia Type: Spinal, Transverse Abdominis Plane (TAP) Block Regional Block: Per Surgeon's request for Post Op pain control Consent for Procedure(s) Verified and Reviewed: Yes Code Status: Attempt Resuscitation ASA classification: 3-Severe systemic disease Is this case an emergency?: No
[2020-12-08] MEDS ORDERED: ceFAZolin 2 GM in SODIUM CHLORIDE 0.9% 100ML 100 ML IV ONE (08:00)
[2020-12-08] MEDS ORDERED: ACETAMINOPHEN 500 MG TABLET PO SCH (08:00)
[2020-12-08] MEDS ORDERED: PHENYLEPHRINE 10 MG/ML VIAL ONE (08:11)
[2020-12-08] MEDS ORDERED: ePHEDrine 50 MG/ML VIAL IVP ONE (08:11)
[2020-12-08] MEDS ORDERED: fentaNYL 100 MCG/2 ML VIAL ONE ×3 (08:14→14:09)
[2020-12-08] MEDS ORDERED: ONDANSETRON 4 MG/2 ML VIAL ONE (08:15)
[2020-12-08] MEDS ORDERED: LIDOCAINE 2%-EPI 1:100000 20 ML MDV ONE (08:19)
[2020-12-08] MEDS ORDERED: BUPIVACAINE 0.5% PF 10 ML VIAL ONE (08:19)
--- NOTE | 2020-12-08 08:36 | HISTORY & PHYSICAL EXAMINATION ---
HPI - History of Present Illness HPI Comment/Other: Patient is a 29 yo at 39+3 wga with complicated by CHTN and hx of 3 prior CS Here for repeat LTCS and possible BTL. Patient has signed [facility] BTL papers but wants another few minutes to decide whether she wants to be sterilized. +FM. No LOF/VB/CTX Started on nifedipine but is currently unmedicated with good control. PMH: Depression/anxiety CHTN PSH: CS x3 SOC HX: Patient has never smoked. Patient is a former smokeless tobacco user. Passive Smoke: N Alcohol Use: N Drug Use: N HIV/High Risk: N Regular Exercise: Y Hx Domestic Abuse: N Jewish Affecting Care: N Sexually Active: Y FH: Mother with HTN PNC: LMP: 03/07/2020 KELVIN by LMP: 12/12/2020 Initial U/S: @ 6.5wks gestation c/w LMP dating. KELVIN 12/12/2020 by LMP FINAL KELVIN: 12/12/2020 NO COVID VACCINE O Positive, Rubella Immune VZV: Immune Genetic testing: Quad screen Normal FAS: 07/27/20 EFW 65.7%ile, 3VC, fundal CL 3.4 Glucola 135 Influenza: TDAP 09/16/2020 GBS positive HSV: Denies for self and partner Breast pump Rx - printed 09/16/20 MOD: rLTCS with BTL Signed [facility] papers and has copy for herself on 08/19/20 Consents signed at 37 wga pp contraception: BTL pap: 05/07/20, NILM ROS: per HPI, otherwise remaining systems are negative. PE: VS: 127/89 95 98.2 GEN : NAD HEENT: NCAT CV: RR RESP: nl effort ABD: Gravid, S&NT/ND EXT: WWP PSYCH: appropriate affect NEURO: A&O EFM: 135 mod flori 15x15 accels no decels TOCO: Quiet A/P: 29 yo at 39+3 here for repeat LTCS and BTL -Patient remains unsure regarding BTL -I highly recommend conisdering alternative methods in the setting of any ambivalence -Patient nad partner are rightfully concerned about increasing risk assocaited with increasing number of -Need a few more minutes to decide and will confirm in OR Patient has been consented for both CS and BTL Reviewed R/B/A which include but are not limited to infection, bleeding, and damage to nearby tissue in organs. Had been reviewed in detail Confirmed consent FWB: well grown, Cat I, GBS positive PREOP: Ancef 2 g IV OCTOR 2 units PRBC confirmed to be available Proceed to OR PMH/PSH - Past Medical History Cardiovascular: positive: Hypertension Respiratory: positive: None Social & Family Hx - Social History Smoking Status: Never smoker Meds/Allgy - Allergies Allergies/Adverse Reactions: Allergies Allergy/AdvReac Type Severity Reaction Status Date / Time No Known Drug Allergies Allergy Verified 12/08/20 00:43 Exam - Vital Signs Vital Signs: Vital Signs x48h Temp Pulse Pulse Resp BP BP Pulse Ox 12/08/20 07:29 98.2 F 95 20 127/89 H 12/08/20 06:41 98.2 F 98 16 127/89 H 100 Results - Lab Results Fish Bones: 12/08/20 06:25 Other Lab Results: Lab Results x24hrs 12/08/20 12/08/20 Range/Units 06:30 06:25 WBC 12.4 H (4.8-10.8) x10^3/uL RBC 4.34 (4.20-5.40) 10^6/uL Hgb 11.3 L (12.0-16.0) g/dL Hct 35.2 L (37.0-47.0) % MCV 81.1 (81.0-99.0) fL MCH 26.0 L (27.0-31.0) pg MCHC 32.1 (32.0-36.0) g/dL RDW 14.6 (12.0-15.0) % Plt Count 193 (130-450) 10^3/uL MPV 12.7 H (7.9-10.8) fL Neut # (Auto) 8.8 H (1.5-6.6) 10^3/uL Lymph # (Auto) 2.7 (1.5-3.5) 10^3/uL [place] # (Auto) 0.7 (0.0-1.0) 10^3/uL Eos # (Auto) 0.1 (0.0-0.7) 10^3/uL Baso # (Auto) 0.0 (0.0-0.1) 10^3/uL Absolute Nucleated RBC 0.00 x10^3/uL Nucleated RBC % 0.0 /100WBC Blood Type O POSITIVE Antibody Screen NEGATIVE Crossmatch IS Only See Detail
[2020-12-08] MEDS ORDERED: ceFAZolin 1 GM VIAL ONE (09:45)
[2020-12-08] MEDS ORDERED: LIDOCAINE 2%-EPI 1:100000 20 ML MDV SUBQ ONE (09:56)
[2020-12-08] MEDS ORDERED: BUPIVACAINE 0.5% PF 10 ML VIAL SUBQ ONE (09:57)
[2020-12-08] MEDS ORDERED: METHYLENE BLUE 0.5% 50 MG/10 ML AMPULE ONE (10:23)
[2020-12-08] MEDS ORDERED: METHYLENE BLUE 0.5% 50 MG/10 ML AMPULE IR ONE (10:35)
[2020-12-08] MEDS ORDERED: METOCLOPRAMIDE 10 MG/2 ML VIAL IVP PRN (10:38)
[2020-12-08] MEDS ORDERED: ATROPINE ABBOJECT 1 MG/10 ML SYRINGE IVP PRN (10:38)
[2020-12-08] MEDS ORDERED: NALOXONE 0.4 MG/ML VIAL IVP PRN (10:38)
[2020-12-08] MEDS ORDERED: MORPHINE 2 MG/ML CARPUJECT IVP PRN (10:38)
[2020-12-08] MEDS ORDERED: ePHEDrine 50 MG/ML VIAL IVP PRN (10:38)
[2020-12-08] MEDS ORDERED: ONDANSETRON 4 MG/2 ML VIAL IVP PRN (10:38)
[2020-12-08] MEDS ORDERED: HYDROmorphone 0.5 MG/0.5 ML SYRINGE IVP PRN (10:38)
[2020-12-08] MEDS ORDERED: KETAMINE 500 MG/10 ML VIAL ONE (10:45)
[2020-12-08] MEDS ORDERED: MIDAZOLAM 2 MG/2 ML VIAL ONE (10:51)
[2020-12-08] MEDS ORDERED: ROCURONIUM 50 MG/5 ML VIAL ONE (11:00)
[2020-12-08] MEDS ORDERED: OXYTOCIN 10 UNIT/ML VIAL ONE (11:00)
[2020-12-08 11:15] LABS: BASOPHILS % (AUTO) 0.3 %; EOSINOPHILS % (AUTO) 0.2 %; LYMPHOCYTES # (AUTO) 1.8 10^3/uL (1.5-3.5); LYMPHOCYTES % (AUTO) 15.4 %; MEAN CORPUSCULAR HEMOGLOBIN 25.9 pg (27.0-31.0); MEAN CORPUSCULAR HGB CONC 30.9 g/dL (32.0-36.0); MEAN CORPUSCULAR VOLUME 83.7 fL (81.0-99.0); MEAN PLATELET VOLUME 12.5 fL (7.9-10.8); MONOCYTES # (AUTO) 0.6 10^3/uL (0.0-1.0); MONOCYTES % (AUTO) 5.4 %; NEUTROPHILS % (AUTO) 78.2 %; PLT - PLATELET COUNT 120 10^3/uL (130-450); RED BLOOD COUNT 2.63 10^6/uL (4.20-5.40); RED CELL DISTRIBUTION WIDTH 14.7 % (12.0-15.0); WHITE BLOOD COUNT 11.5 x10^3/uL (4.8-10.8)
[2020-12-08 11:18] LABS: CALCIUM 7.7 mg/dL (8.5-10.3); CREATININE 0.3 mg/dL (0.4-1.0); POTASSIUM 4.6 mmol/L (3.5-5.0)
[2020-12-08 11:19] LABS: HGB - HEMOGLOBIN 6.8 g/dL (12.0-16.0)
[2020-12-08] MEDS ORDERED: HYDROmorphone 1 MG/ML CARPUJECT ONE (11:55)
[2020-12-08 12:22] LABS: INR 1.1 (0.8-1.2); PT - PROTHROMBIN TIME 12.3 secs (9.9-12.6)
[2020-12-08] MEDS ORDERED: SODIUM CHLORIDE 0.9% 10 ML VIAL IVP ONE (12:51)
[2020-12-08] MEDS ORDERED: SUGAMMADEX 200 MG/2 ML VIAL IVP ONE (12:53)
[2020-12-08] MEDS ORDERED: SODIUM CHLORIDE 0.9% 1,000 ML IV ONE (13:41)
[2020-12-08] MEDS ORDERED: ONDANSETRON ODT 4 MG TABLET TL PRN (14:04)
[2020-12-08] MEDS ORDERED: OXYTOCIN/SODIUM CHLORIDE 500 ML IV PRN (14:04)
[2020-12-08] MEDS ORDERED: SODIUM CHLORIDE FLUSH 0.9% 10 ML SYRINGE IVP PRN (14:04)
[2020-12-08] MEDS: fentaNYL 100 MCG/2 ML VIAL IVP PRN ×2 (14:06→14:26)
--- NOTE | 2020-12-08 14:06 | OPERATIVE REPORT ---
Operative Report - General Admit Date: 12/08/20 Procedure Date: 12/08/20 Planned Procedure: Repeat low transverse and bilateral tubal ligation Pre-Op Diagnosis: IUP at 39+3 wga, hx of 3 prior CS, desires sterilization Procedure Performed: Repeat low transverse , lysis of adhesions, bilateral salpingectomy, cystoscopy Transfusion with 2 units PRBC Post Op Diagnosis: Same and uterine rupture, acute blood loss anemia - Procedure Note Primary Surgeon: Jovanna Brown MD Secondary Surgeon: Cory Vadles MD Anesthesia Provider: Nkechi Santana CRNA and CHENG Stone Anesthesia Technique: Spinal, Other (Spinal with conversion to general) Pathology: Bilateral fallopian tubes sent as one specimen Placenta for routine discard IV Fluids (mL): 5 (2 units PRBC, 60 units pitocin, 3L NS, please see anesthesia record) Estimated Blood Loss (mL): 2,500 Urine Output (mL): 40 Indications: Patient is a 29 yo at 39+3 wga with history of 3 prior c-sections and desires sterilization. Findings: Prior hysterotomy had ruptured prior to the procedure, the uterus was splayed open with a large stellate defect and amniotic sac alone maintaining the fetus within the uterine cavity. Significant adhesive disease, with the anterior uterus adherent to the anterior abdominal wall. Once cleared of adhesions, normal appearing fallopian tubes and ovaries. Female infant, vertex presentation, with exposed membranes apparent upon opening the fascial layer. Apgars 8/9, weight 8# 11 oz Complications: Acute surgical blood loss of estimated 2500 cc, transfused with 2 units PRBCs intraop Conversion to general anesthesia - Other Other Information/Narrative: Risks benefits and alternatives of the procedure were discussed. Written informed consent was obtained. Patient was taken to the operating room where spinal anesthesia was placed and found to be adequate. She was prepped and draped in the usual sterile fashion in the dorsal supine position with a leftward tilt. Tuttle catheter was in place. SCDs were in place and activated. Cefazolin 2 g IV was given as a preoperative antibiotic. Preoperative timeout was performed. A Pfannenstiel incision was made in the skin with a scalpel and carried through the underlying layer of fascia in a combination of sharp and blunt dissection. The fascia was incised in the midline. Patient had marked adhesions that required significant sharp and blunt dissection. The superior aspect of the fascial incision was grasped with the Epi clamps, elevated, and the underlying rectus muscles were dissected off bluntly and sharply with the scalpel. Part of the lower uterine segment was adherent to the anterior abdominal wall. Adhesions were thick and could not be fully dissected off the fascia. After release of some adhesions, it became apparent that the uterus had ruptured passively at some time prior to the procedure. The amniotic sac was intact and maintaining the fetus in utero. There was no blood in the pelvis or abdomen. The rectus muscles and peritoneum were already anatomoically and provided no barrier to the anterior aspect of the uterus. No uterine incision was made. The amniotic sac was ruptured. The bladder blade was removed. The infant was delivered from from vertex position through the large uterine defect. Baby was wrapped in a warm sterile towel. Delayed cord clamping was performed. After cessation of pulsations, the cord was clamped x2 and cut. The infant was handed off to the waiting pediatricians. The placenta was removed with manual expression. The uterus could not be exteriorized due to the extensive adhesions fixing it in place. The uterine defect was stellate in appearance with margins that were difficult to identify. The uterine defect was then repaired in a running locked fashion using 0 Vicryl suture to obtain hemostasis. Once the anatomy was relatively well restored and bleeding was controlled, extensive lysis of the thickly adherent adhesions was performed in a combination of blunt and sharp dissection with m inimal and judicious use of cautery. Once the uterus was sufficiently mobilized, it was exteriorized for further examination. Additional extension of the defect were closed and areas of the defect that were amenable to imbrication were then imbricated with a running suture of 0-Vicryl. Good hemostasis was noted. Anesthesia was converted to general endotracheal mid-procedure. The tuttle catheter was backfilled with 350 cc of diluted methylene blue to determine the borders of the bladder and ensure that the integrity of the bladder was not damaged during the procedure. There was no spillage of methylene blue into the abdominal cavity and the margins of the bladder were well aware from the hysterotomy repair. The bladder was then drained. Attention was then turned to the salpingectomy portion of the procedure. The left Fallopian tube was grasped with Nelly clamps and elevated. It was resected from the underlying mesosalpinx with the LigaSure bipolar sealing and cutting device until the insertion point at the uterine cornua was met. At that point, the fallopian tube was sealed and transected at its insertion point into the uterine cornua. The tube was removed from the field. This process was repeated on the right side. Both tubes were sent in a single specimen to Pathology. Upon attempt to return the uterus to the abdomen, the pressure in the left ovarian vein was increase and bleeding was noted at the margin of the mesosalpinx post salpingectomy. Bipolar sealing was insufficient to obtain hemostasis. Several figure of 8 sutures using 2-0 Chromic were placed to obtain hemostasis without success. The ovarian vein was ligated with placement of a figure of 8 suture below the vein. Good hemostasis was noted. The uterus was returned to the abdomen. The gutters were cleared of all clots and debris. The pelvis was irrigated with warm normal saline. The uterine defect was well visualized in normal anatomic position it was noted again to be hemostatic. The salpingectomy sites were examined and were noted to be hemostatic. The peritoneum was then reapproximated with 2-0 Vicryl in a running fashion. The rectus muscles were then reapproximated using interrupted [id number] sutures using 2-0 Chromic. Good hemostasis was noted. The fascia was then closed using 0 Vicryl in a running fashion starting from the left lateral edge to the midline. A second suture was used to close the fascia in a running fashion starting from the right lateral edge and meeting in the midline, agian using 0-Vicryl. The subcutaneous tissue was then irrigated and closed using 2-0 chromic in a running subcutaneous suture. Skin was closed in a running subcuticular suture using 4-0 Monocryl. Steri-Strips were applied to reinforce the incision and dressing was applied. Tuttle catheter was then removed. A cystoscope was inserted into the urethra. Survey of the bladder surface was devoid of defect or damage. Bilateral ureteral jets were noted. Bladder was drained and the cystoscope was removed. A new Tuttle catheter was placed. Procedure was well-tolerated and without complication. Sponge lap and needle counts were correct x2. Patient was taken to recovery room in stable condition. Dr. Valdes assisted with retraction, delivery of the infant, suturing, and cystoscopy. 25 modifier: This procedure was more complicated than average due to the presence of uterine rupture prior to the requiring complicated repair and the extreme adhesive disease that impeded the surgical process. As a result, this procedure required several hours of surgical time and included cystoscopy to ensure lack of damage to the bladder and ureters.
[2020-12-08 14:18] LABS: HCT - HEMATOCRIT 35.4 % (37.0-47.0); HGB - HEMOGLOBIN 11.6 g/dL (12.0-16.0)
[2020-12-08] MEDS: KETOROLAC 15 MG/ML VIAL IVP SCH ×2 (15:31→21:28)
[2020-12-08] MEDS: LACTATED RINGERS 1,000 ML IV SCH (15:32)
[2020-12-08] MEDS: ACETAMINOPHEN 500 MG TABLET PO SCH ×2 (15:36→23:04)
--- NOTE | 2020-12-08 17:17 | ANESTHESIA POST OP EVALUATION ---
Anesthesia Post Eval - Post Anesthesia Eval Vitals: Last Vital Signs Temp 36.5 C 12/08/20 16:00 Pulse 115 H 12/08/20 16:15 Resp 18 12/08/20 16:15 BP 131/88 H 12/08/20 16:15 Pulse Ox 97 12/08/20 15:30 CV Function Including HR & BP: Stable Pain Control: Satisfactory Nausea & Vomiting: Negative Mental Status: Baseline Respiratory Status: Airway Patent Hydration Status: Satisfactory Anesthesia Complications: None
[2020-12-08] MEDS: oxyCODONE 5 MG TABLET PO PRN ×2 (19:00→23:06)
[2020-12-08] MEDS: ceFAZolin 2 GM in SODIUM CHLORIDE 0.9% 100ML 100 ML IV SCH (19:02)
[2020-12-08] MEDS: SODIUM CHLORIDE FLUSH 0.9% 10 ML SYRINGE IVP SCH (19:40)
[2020-12-08] MEDS: DOCUSATE SODIUM 100 MG CAPSULE PO SCH (21:28)
[2020-12-08] MEDS: SIMETHICONE CHEW 80 MG TABLET PO PRN (22:02)
[2020-12-09] MEDS: LACTATED RINGERS 1,000 ML IV SCH ×2 (01:46→13:12)
[2020-12-09] MEDS: KETOROLAC 15 MG/ML VIAL IVP SCH ×2 (02:59→08:59)
[2020-12-09] MEDS: ceFAZolin 2 GM in SODIUM CHLORIDE 0.9% 100ML 100 ML IV SCH ×2 (02:59→11:21)
[2020-12-09] MEDS: SIMETHICONE CHEW 80 MG TABLET PO PRN ×3 (03:01→16:10)
[2020-12-09] MEDS: oxyCODONE 5 MG TABLET PO PRN ×5 (04:42→21:58)
[2020-12-09 06:13] LABS: BASOPHILS % (AUTO) 0.2 %; EOSINOPHILS % (AUTO) 0.1 %; HCT - HEMATOCRIT 23.9 % (37.0-47.0); HGB - HEMOGLOBIN 7.7 g/dL (12.0-16.0); LYMPHOCYTES # (AUTO) 2.2 10^3/uL (1.5-3.5); LYMPHOCYTES % (AUTO) 13.6 %; MEAN CORPUSCULAR HEMOGLOBIN 26.8 pg (27.0-31.0); MEAN CORPUSCULAR HGB CONC 32.2 g/dL (32.0-36.0); MEAN CORPUSCULAR VOLUME 83.3 fL (81.0-99.0); MEAN PLATELET VOLUME 12.9 fL (7.9-10.8); MONOCYTES # (AUTO) 1.4 10^3/uL (0.0-1.0); MONOCYTES % (AUTO) 8.4 %; NEUTROPHILS # (AUTO) 12.8 10^3/uL (1.5-6.6); NEUTROPHILS % (AUTO) 77.2 %; PLT - PLATELET COUNT 134 10^3/uL (130-450); RED BLOOD COUNT 2.87 10^6/uL (4.20-5.40); RED CELL DISTRIBUTION WIDTH 14.7 % (12.0-15.0); WHITE BLOOD COUNT 16.5 x10^3/uL (4.8-10.8)
[2020-12-09] MEDS: ACETAMINOPHEN 500 MG TABLET PO SCH ×2 (08:03→16:10)
[2020-12-09] MEDS: DOCUSATE SODIUM 100 MG CAPSULE PO SCH ×2 (08:57→21:52)
[2020-12-09] MEDS: ENOXAPARIN 40 MG/0.4 ML SYRINGE SUBQ SCH (08:58)
[2020-12-09] MEDS ORDERED: SERTRALINE 50 MG TABLET PO SCH (09:00)
[2020-12-09 12:01] LABS: BASOPHILS % (AUTO) 0.3 %; EOSINOPHILS % (AUTO) 0.3 %; HGB - HEMOGLOBIN 7.4 g/dL (12.0-16.0); LYMPHOCYTES % (AUTO) 19.3 %; MEAN CORPUSCULAR HEMOGLOBIN 27.9 pg (27.0-31.0); MEAN CORPUSCULAR HGB CONC 33.6 g/dL (32.0-36.0); MEAN PLATELET VOLUME 12.2 fL (7.9-10.8); MONOCYTES % (AUTO) 9.8 %; NEUTROPHILS % (AUTO) 69.6 %; PLT - PLATELET COUNT 131 10^3/uL (130-450); RED BLOOD COUNT 2.65 10^6/uL (4.20-5.40); RED CELL DISTRIBUTION WIDTH 14.9 % (12.0-15.0); WHITE BLOOD COUNT 15.6 x10^3/uL (4.8-10.8)
[2020-12-09 12:06] LABS: ABNORMAL LYMPHS % (MANUAL) 0 %; BAND NEUTROPHILS % (MANUAL) 0 %
[2020-12-09 12:39] LABS: LYMPHOCYTES # (MANUAL) 2.5 10^3/uL (1.5-3.5); LYMPHOCYTES % (MANUAL) 16 %; NEUTROPHILS # (MANUAL) 11.1 10^3/uL (1.5-6.6); PLATELET ESTIMATE, MANUAL NORMAL (130-450,000) (NORMAL); PLATELET MORPHOLOGY NORMAL APPEARANCE (NORMAL)
[2020-12-09 12:40] LABS: DIFFERENTIAL COMMENT MANUAL DIFFERENTIAL
[2020-12-09] MEDS: SODIUM CHLORIDE FLUSH 0.9% 10 ML SYRINGE IVP SCH ×4 (13:12→21:53)
[2020-12-09] MEDS ORDERED: FERRIC GLUCONATE 125 MG in SODIUM CHLORIDE 0.9% 100ML 100 ML IV ONE (14:30)
[2020-12-09] MEDS: IBUPROFEN 600 MG TABLET PO SCH ×2 (16:10→21:52)
--- NOTE | 2020-12-09 18:54 | PROVIDER PROGRESS NOTE ---
Subjective - Prog Note Date Prog Note Date: 12/09/20 Prog Note Time: 08:30 - Subjective Subjective: Patient is doing well. Rates pain 7/10 but reports that she is satisfied with pain management. Has been up and out of bed without light headedness or dizzi ness. UOP has been adequate. Tuttle remains in place. BF going well. Tolerating po. Minimal bleeding. Objective - Vital Signs/Intake & Output Reviewed Vital Signs: Yes Vital Signs: Vital Signs x48h Temp Pulse Resp BP 12/09/20 16:10 98.4 F 103 H 17 121/60 Intake & Output: Intake & Output 12/06/20 12/07/20 12/08/20 12/09/20 23:59 23:59 23:59 23:59 Intake Total 100 2310 Output Total 480 2155 Balance -380 155 - Objective General Appearance: positive: No acute distress Respiratory: positive: No respiratory distress Cardiovascular: positive: Other (RR) Peripheral Pulses: 2+ Radial (R), 2+ Radial (L), 2+ Dorsalis pedis (R), 2+ Do rsalis pedis (L) Abdomen: positive: Other (soft and appropriately tender. FF below umbi. Dressing with some serosang drainage, dried. Otherwise CDI.) Extremities: positive: Non-tender, Other (SCDS in place) Neurologic/Psychiatric: positive: Oriented x3 - Lab Results Fish Bones: 12/09/20 11:55 12/08/20 10:55 Other Labs: Lab Results x24hrs 12/09/20 12/09/20 Range/Units 11:55 05:46 WBC 15.6 H 16.5 H (4.8-10.8) x10^3/uL RBC 2.65 L 2.87 L (4.20-5.40) 10^6/uL Hgb 7.4 L 7.7 L (12.0-16.0) g/dL Hct 22.0 L 23.9 L (37.0-47.0) % MCV 83.0 83.3 (81.0-99.0) fL MCH 27.9 26.8 L (27.0-31.0) pg MCHC 33.6 32.2 (32.0-36.0) g/dL RDW 14.9 14.7 (12.0-15.0) % Plt Count 131 134 (130-450) 10^3/uL MPV 12.2 H 12.9 H (7.9-10.8) fL Neut # (Auto) Not Reportable 12.8 H (1.5-6.6) 10^3/uL Lymph # (Auto) Not Reportable 2.2 (1.5-3.5) 10^3/uL [place] # (Auto) Not Reportable 1.4 H (0.0-1.0) 10^3/uL Eos # (Auto) Not Reportable 0.0 (0.0-0.7) 10^3/uL Baso # (Auto) Not Reportable 0.0 (0.0-0.1) 10^3/uL Absolute Nucleated RBC Not Reportable 0.00 x10^3/uL Total Counted 100 Band Neuts % (Manual) 0 (0 - 10) % Abnorm Lymph % (Manual) 0 % Nucleated RBC % Not Reportable 0.0 /100WBC Neutrophils # (Manual) 11.1 H (1.5-6.6) 10^3/uL Lymphocytes # (Manual) 2.5 (1.5-3.5) 10^3/uL Monocytes # (Manual) 2.0 H (0.0-1.0) 10^3/uL Eosinophils # (Manual) 0.0 (0-0.7) 10^3/uL Basophils # (Manual) 0.0 (0-0.1) 10^3/uL Differential Comment MANUAL DIFFERENTIAL Platelet Estimate NORMAL (130-450,000) (NORMAL) Platelet Morphology NORMAL APPEARANCE (NORMAL) RBC Morph Micro Appear 2+ HYPOCHROMASIA (NORMAL) Assessment/Plan - Problem List (1) delivery delivered Impression: POD#1 after complicated rLTCS and BTL with acute blood loss anemia requiring transfusion HCT has dropped this am but patient is well appearing and VSS Suspect equilibration. Will recheck CBC at 12:00 If stable, will administer iron infusion Extensive surgical repair with 5 hour procedure -DC cefazolin at 24 hours High risk of VTE as well as ovarian vein thrombosis -Lovenox 40 mg SQ daily while inpatient -SCDs when in bed Cont with otherwise routine post op care -Encourage ambulation -DC tuttle when ambulatory -Transition to po pain meds If stable, anticipate DC home tomorrow.
[2020-12-10] MEDS: ACETAMINOPHEN 500 MG TABLET PO SCH ×3 (00:33→18:22)
[2020-12-10] MEDS: IBUPROFEN 600 MG TABLET PO SCH ×3 (03:45→18:22)
[2020-12-10] MEDS: SIMETHICONE CHEW 80 MG TABLET PO PRN ×2 (06:34→18:22)
[2020-12-10] MEDS: oxyCODONE 5 MG TABLET PO PRN ×4 (06:35→20:31)
[2020-12-10 07:44] LABS: BASOPHILS % (AUTO) 0.3 %; EOSINOPHILS # (AUTO) 0.1 10^3/uL (0.0-0.7); EOSINOPHILS % (AUTO) 0.5 %; HCT - HEMATOCRIT 20.5 % (37.0-47.0); LYMPHOCYTES # (AUTO) 3.1 10^3/uL (1.5-3.5); LYMPHOCYTES % (AUTO) 21.4 %; MEAN CORPUSCULAR HEMOGLOBIN 27.7 pg (27.0-31.0); MEAN CORPUSCULAR HGB CONC 32.7 g/dL (32.0-36.0); MEAN CORPUSCULAR VOLUME 84.7 fL (81.0-99.0); MEAN PLATELET VOLUME 12.3 fL (7.9-10.8); MONOCYTES # (AUTO) 0.9 10^3/uL (0.0-1.0); MONOCYTES % (AUTO) 6.5 %; NEUTROPHILS # (AUTO) 10.2 10^3/uL (1.5-6.6); NEUTROPHILS % (AUTO) 69.9 %; PLT - PLATELET COUNT 123 10^3/uL (130-450); RED BLOOD COUNT 2.42 10^6/uL (4.20-5.40); RED CELL DISTRIBUTION WIDTH 15.3 % (12.0-15.0); WHITE BLOOD COUNT 14.5 x10^3/uL (4.8-10.8)
[2020-12-10 07:46] LABS: HGB - HEMOGLOBIN 6.7 g/dL (12.0-16.0)
[2020-12-10] MEDS: DOCUSATE SODIUM 100 MG CAPSULE PO SCH (08:22)
[2020-12-10] MEDS: SODIUM CHLORIDE FLUSH 0.9% 10 ML SYRINGE IVP SCH (08:23)
[2020-12-10] MEDS ORDERED: SODIUM CHLORIDE 0.9% 500 ML IV ONE (09:25)
[2020-12-10] MEDS: ENOXAPARIN 40 MG/0.4 ML SYRINGE SUBQ SCH ×2 (12:34→19:05)
[2020-12-10 14:45] LABS: BASOPHILS % (AUTO) 0.3 %; EOSINOPHILS # (AUTO) 0.1 10^3/uL (0.0-0.7); EOSINOPHILS % (AUTO) 0.6 %; HCT - HEMATOCRIT 24.2 % (37.0-47.0); HGB - HEMOGLOBIN 7.8 g/dL (12.0-16.0); LYMPHOCYTES # (AUTO) 3.3 10^3/uL (1.5-3.5); LYMPHOCYTES % (AUTO) 22.8 %; MEAN CORPUSCULAR HEMOGLOBIN 27.6 pg (27.0-31.0); MEAN CORPUSCULAR HGB CONC 32.2 g/dL (32.0-36.0); MEAN CORPUSCULAR VOLUME 85.5 fL (81.0-99.0); MEAN PLATELET VOLUME 12.2 fL (7.9-10.8); MONOCYTES % (AUTO) 6.9 %; NEUTROPHILS # (AUTO) 9.8 10^3/uL (1.5-6.6); NEUTROPHILS % (AUTO) 67.7 %; PLT - PLATELET COUNT 128 10^3/uL (130-450); RED BLOOD COUNT 2.83 10^6/uL (4.20-5.40); RED CELL DISTRIBUTION WIDTH 15.1 % (12.0-15.0); WHITE BLOOD COUNT 14.5 x10^3/uL (4.8-10.8)
--- NOTE | 2020-12-10 15:18 | PROVIDER PROGRESS NOTE ---
Subjective - Prog Note Date Prog Note Date: 12/10/20 Prog Note Time: 15:15 - Subjective Subjective: Patient is POD#2 s/p complicated rLTCS, STU, BTL, cystoscopy Patient received 2 units PRBC intraop. This am, HCT continued to show downward drift. She was mildly tachycardic and felt dizzy with standing. has received an additional unit of PRBCs and has had an appropriate rise. She feels much better, states she "feels alive". Rates pain 2/10. BF going well. Reports ample urine output. No abdominal pain. Tolerating po with no nausea/vomiting. Lovenox held this am. Anticipate giving Lovenox this afternoon given stable HCT. Objective - Vital Signs/Intake & Output Reviewed Vital Signs: Yes Vital Signs: Vital Signs x48h Temp Pulse Pulse Resp BP BP Pulse Ox 12/10/20 12:19 98.4 F 80 20 120/67 12/10/20 10:15 98.4 F 86 16 119/82 H 98 12/10/20 09:48 98.4 F 104 H 117/61 98 12/10/20 09:44 92 109/66 12/10/20 09:40 98.6 F 93 17 107/56 L 98 12/10/20 09:32 104 H 17 112/67 97 12/10/20 09:15 98.2 F 89 16 135/73 H 98 12/10/20 07:52 97.5 F L 102 H 16 132/73 H 98 Intake & Output: Intake & Output 12/07/20 12/08/20 12/09/20 12/10/20 23:59 23:59 23:59 23:59 Intake Total 100 3510 755 Output Total 480 2890 Balance -380 620 755 - Objective General Appearance: positive: No acute distress Respiratory: positive: No respiratory distress, Breath sounds nml Cardiovascular: positive: Regular rate & rhythm Abdomen: positive: Other (soft and without significant TTP. Dressing remains in place, dry ss drainage, otherwise CDI) Skin: positive: Color nml, No rash Extremities: positive: Non-tender, Nml appearance Neurologic/Psychiatric: positive: Oriented x3 - Lab Results Fish Bones: 12/10/20 14:36 12/08/20 10:55 Other Labs: Lab Results x24hrs 0912/10/20 12/08/20 Range/Units 14:36 07:25 06:30 WBC 14.5 H 14.5 H (4.8-10.8) x10^3/uL RBC 2.83 L 2.42 L (4.20-5.40) 10^6/uL Hgb 7.8 L 6.7 L* (12.0-16.0) g/dL Hct 24.2 L 20.5 L (37.0-47.0) % MCV 85.5 84.7 (81.0-99.0) fL MCH 27.6 27.7 (27.0-31.0) pg MCHC 32.2 32.7 (32.0-36.0) g/dL RDW 15.1 H 15.3 H (12.0-15.0) % Plt Count 128 L 123 L (130-450) 10^3/uL MPV 12.2 H 12.3 H (7.9-10.8) fL Neut # (Auto) 9.8 H 10.2 H (1.5-6.6) 10^3/uL Lymph # (Auto) 3.3 3.1 (1.5-3.5) 10^3/uL [place] # (Auto) 1.0 0.9 (0.0-1.0) 10^3/uL Eos # (Auto) 0.1 0.1 (0.0-0.7) 10^3/uL Baso # (Auto) 0.0 0.0 (0.0-0.1) 10^3/uL Absolute Nucleated RBC 0.00 0.00 x10^3/uL Nucleated RBC % 0.0 0.0 /100WBC Blood Type O POSITIVE Antibody Screen NEGATIVE Crossmatch IS Only See Detail Assessment/Plan - Problem List (1) delivery delivered Impression: POD#2 s/p complicated rLTCS in setting of quiescent uterine rupture, BTL, LOS, c ystoscopy with acute blood loss anemia. -Has received additional unit PRBC this am with appropriate rise in HCT -Total 2 units PRBC given -Will give Lovenox this afternoon -Has received IV ferric glucoonate x1 -Will give additional dose in am prior to DC POSTOP: Pain well managed Tolerating po Ample UOP and voiding. Ambulating. If remains stable overnight, plan for DC in am
[2020-12-11] MEDS: IBUPROFEN 600 MG TABLET PO SCH ×2 (00:16→06:25)
[2020-12-11] MEDS: DOCUSATE SODIUM 100 MG CAPSULE PO SCH ×2 (00:16→08:52)
[2020-12-11] MEDS: ACETAMINOPHEN 500 MG TABLET PO SCH ×2 (02:20→09:39)
[2020-12-11 08:35] VITALS: BP 128/65
[2020-12-11] MEDS: oxyCODONE 5 MG TABLET PO PRN (09:38)
[2020-12-11] MEDS ORDERED: ENOXAPARIN 40 MG/0.4 ML SYRINGE SUBQ SCH (10:30)
--- NOTE | 2020-12-11 10:33 | Discharge Plan ---
Discharge Plan Problem Reviewed?: Yes Disposition: Home, Self Care Condition: Good Prescriptions: Acetaminophen [Acetaminophen Extra Strength] 1,000 mg PO Q8H PRN #60 tablet PRN Reason: Pain Docusate Sodium 100Mg Capsule [Colace 100Mg Capsule] 100 - 200 mg PO BID PRN #60 cap PRN Reason: Constipation Ibuprofen [Motrin] 600 mg PO Q6H PRN #60 tab PRN Reason: Pain oxyCODONE [Roxicodone] 2.5 - 5 mg PO Q4H PRN #24 tablet PRN Reason: Severe Pain Diet: Regular Plan of Treatment: Ibuprofen 600 mg by mouth every 6 hours as needed for pain Acetaminophen 500-1000 mg by mouth every 8 hours as needed for pain Docusate 100-200 mg by mouth twice a day as needed for constipation Oxycodone 2.5-5 mg by mouth every 4 hours as needed for pain Iron 325 mg by mouth twice a day Vit C 250 mg by mouth twice a day with iron Additional Instructions or Follow Up instructions: Nothing in the vagina for 6 weeks: No intercourse, tampons, douching Call for: -Fever greater than 100.5 -Pain that does not improve with pain medication -Heavy bleeding in which you are soaking a pad an hour for 2 hours in a row -Incision becomes hot, hard, red, starts to open, or leaks foul smelling fluid LIFTING: No lifting more than 10# for 4 weeks DRIVING: No driving while on narcotics SHOWERING: Ok to shower. Let water run over the incision. Do not soap, scrub, or apply lotion. Pat dry with a clean towel or leland a hydraulic chair assembler. The surgical stickers will start to peel off and you can remove them when they do. Otherwise, the provider will remove them at your one week follow-up appointment. DRESSING: OK to use an unscented sanitary napkin or clean washcloth to keep the incision dry if the belly folds over the incision. No Smoking: If you smoke, Please STOP! Call for help. Follow-up with: Margot Brown MD [Provider Admit Priv/Credential] -
--- NOTE | 2020-12-11 14:16 | DISCHARGE SUMMARY ---
"Discharge Summary Discharge Date: 12/11/20 Discharging Provider: Stephanie Condition at Discharge: Good Discharge Disposition: 01 Home, Self Care - DIAGNOSES Admission Diagnoses: IUP at 39+3 Hx of 3 prior c-sections Desires sterilization Discharge Diagnoses with Status of Each Condition: same and delivery of term gestation Quiescent uterine rupture noted at entry into pelvis Acute blood loss anemia hemorrhage S/p transfusion s/p sterilization - HPI History of Present Illness: Patient is a 29 yo at 39+3 wga with complicated by CHTN and hx of 3 prior CS Here for repeat LTCS and BTL. Patient has signed [facility] BTL papers and desires sterilization. +FM. No LOF/VB/CTX Started on nifedipine but is currently unmedicated with good control. - CONSULTS | PROCEDURES Procedures: Repeat low transverse , bilateral tubal ligation, lysis of adhesions - HOSPITAL COURSE Hospital Course: Patient is a 29 yo admitted for repeat and tubal ligation. Entry into abdominal cavity complicated by thick and diffuse adhesions, frozen pelvis. Upon entry, it was noted that prior hysterotomy had ruptured prior to the procedure, the uterus was splayed open with a large stellate defect and amniotic sac alone maintaining the fetus within the uterine cavity. Area of rupture was high in pelvis with upper margin not viable prior to delivery of . Exposed membranes apparent upon opening the fascial layer. Significant adhesive disease, with the anterior uterus adherent to the anterior abdominal wall. Female was delivered through the uterine defect from vertex presentation. Apgars 8/9, weight 8# 11 oz. Extensive lysis of adhesions necessary to fully visualize uterus and extent of defect. Once cleared of adhesions, normal appearing fallopian tubes and ovaries. Tubal ligation performed. Complicated by acute surgical blood loss of estimated 2500 cc, transfused with 2 units PRBCs intraop Conversion to general anesthesia. Postop course was generally uncomplicated. On POD#2, repeat H&H showed downward drift. Patient was transfused one additional unit of PRBC with an appropriate rise. Patient also received ferric gluconate 125 mg IV x1. Received daily lovenox for VTE ppx. By postop day #3, patient was meeting goals for discharge and was discharged to home. - ALLERGIES Allergies/Adverse Reactions: Allergies Allergy/AdvReac Type Severity Reaction Status Date / Time No Known Drug Allergies Allergy Verified 12/08/20 00:43 - MEDICATIONS Home Medications: Ambulatory Orders Medication Instructions Recorded Confirmed Acetaminophen [Acetaminophen Extra 1,000 mg PO Q8H PRN #60 tablet 12/11/20 Strength] Ascorbic Acid [Vitamin C] 250 mg PO BID #60 tablet 12/11/20 Docusate Sodium 100Mg Capsule 100 - 200 mg PO BID PRN #60 cap 12/11/20 [Colace 100Mg Capsule] Ferrous Gluconate 324 mg PO BID #60 tablet 12/11/20 Ibuprofen [Motrin] 600 mg PO Q6H PRN #60 tab 12/11/20 oxyCODONE [Roxicodone] 2.5 - 5 mg PO Q4H PRN #24 tablet 12/11/20 - PHYSICAL EXAM AT DISCHARGE Respiratory: positive: No respiratory distress, Breath sounds nml Cardiovascular: positive: Regular rate & rhythm Peripheral Pulses: positive: 2+ Abdomen: positive: Non-tender, Other (FF below umbi. Dressing removed. Incision CDI) Back: positive: Nml inspection Skin: positive: Color nml - LABS Result Diagrams: 12/10/20 14:36 12/08/20 10:55 - FOLLOW UP Follow Up: [address] Brown - TIME SPENT Time Spent in Discharge (Minutes): 30"
== END 2020-12-11 11:45 | disposition home or self-care (01) | DRG 783 ==
LOC: FBP 06:08
PROVIDERS: ADMIT Obstetrics & Gynecology; ATTEND Obstetrics & Gynecology
PROC: 0UT70ZZ Resection of Bilateral Fallopian Tubes, Open Approach (ICD-10-PCS; 2020-12-08)
PROC: 0UN90ZZ Release Uterus, Open Approach (ICD-10-PCS; 2020-12-08)
PROC: 30233N1 Transfusion of Nonautologous Red Blood Cells into Peripheral Vein, Percutaneous Approach (ICD-10-PCS; 2020-12-08)
PROC: 30233N1 Transfusion of Nonautologous Red Blood Cells into Peripheral Vein, Percutaneous Approach (ICD-10-PCS; 2020-12-08)
PROC: 10D00Z1 Extraction of Products of Conception, Low, Open Approach (ICD-10-PCS; principal; 2020-12-08 08:30)
DX: O34.211 Maternal care for low transverse scar from previous cesarean delivery (principal); O71.1 Rupture of uterus during labor; O10.92 Unspecified pre-existing hypertension complicating childbirth; D62 Acute posthemorrhagic anemia; N85.8 Other specified noninflammatory disorders of uterus; Z3A.39 39 weeks gestation of pregnancy; Z37.0 Single live birth; O99.02 Anemia complicating childbirth; Z30.2 Encounter for sterilization; O99.214 Obesity complicating childbirth; E66.01 Morbid (severe) obesity due to excess calories; Z87.891 Personal history of nicotine dependence; O99.824 Streptococcus B carrier state complicating childbirth
CPT/HCPCS: 36415; 80048; 85014; 85018; 85025; 85384; 85610; 86850; 86900; 86901; 86920; A9270; J1170; J1650; J2916; J7120; P9016; P9040

== ENCOUNTER 2021-05-17 10:39 | Outpatient (CLI) | payer MEDICAID ==
[2021-05-17 12:24] LABS: BILIRUBIN,URINE NEGATIVE (NEGATIVE); GLUCOSE, URINE (UA) NEGATIVE (NEGATIVE); KETONES,URINE (UA) NEGATIVE (NEGATIVE); LEUKOCYTE ESTERASE, URINE NEGATIVE (NEGATIVE); NITRITE,URINE NEGATIVE (NEGATIVE); OCCULT BLOOD,URINE SMALL (NEGATIVE); PROTEIN,URINE NEGATIVE (NEGATIVE); UROBILINOGEN,URINE 0.2 (NORMAL) E.U./dL (NORMAL)
[2021-05-17 12:25] LABS: BASOPHILS % (AUTO) 0.4 %; EOSINOPHILS # (AUTO) 0.1 10^3/uL (0.0-0.7); EOSINOPHILS % (AUTO) 1.2 %; HGB - HEMOGLOBIN 12.2 g/dL (12.0-16.0); LYMPHOCYTES # (AUTO) 2.1 10^3/uL (1.5-3.5); LYMPHOCYTES % (AUTO) 28.1 %; MEAN CORPUSCULAR HEMOGLOBIN 26.5 pg (27.0-31.0); MEAN CORPUSCULAR HGB CONC 32.1 g/dL (32.0-36.0); MEAN CORPUSCULAR VOLUME 82.6 fL (81.0-99.0); MEAN PLATELET VOLUME 12.8 fL (7.9-10.8); MONOCYTES # (AUTO) 0.6 10^3/uL (0.0-1.0); MONOCYTES % (AUTO) 7.5 %; NEUTROPHILS # (AUTO) 4.7 10^3/uL (1.5-6.6); NEUTROPHILS % (AUTO) 62.7 %; PLT - PLATELET COUNT 210 10^3/uL (130-450); RED CELL DISTRIBUTION WIDTH 14.2 % (12.0-15.0); WHITE BLOOD COUNT 7.4 x10^3/uL (4.8-10.8)
[2021-05-17 12:51] LABS: BACTERIA,URINE Few /HPF (None Seen); CLARITY,URINE CLEAR (CLEAR); WBC,URINE 0-3 /HPF (0-5)
[2021-05-17 12:55] LABS: RBC,URINE 0-5 /HPF (0-5); SQUAMOUS EPITHELIAL CELL,UR MOD Squamous (<= Few)
[2021-05-17 13:10] LABS: THYROID STIMULATING HORMONE < 0.08 uIU/mL (0.34-5.60)
[2021-05-17 13:13] LABS: FERRITIN 12.9 ng/mL (11.0-306.8)
[2021-05-17 13:20] LABS: % IRON SATURATION 21 % (20-50); ALBUMIN 3.8 g/dL (3.2-5.5); ALKALINE PHOSPHATASE 122 IU/L (42-121); ALT ALANINE AMINOTRANSFERASE 26 IU/L (10-60); AST ASPARTATE AMINOTRANSFERASE 21 IU/L (10-42); BILIRUBIN,TOTAL 0.7 mg/dL (0.2-1.0); BUN - BLOOD UREA NITROGEN 12 mg/dL (6-20); CARBON DIOXIDE - CO2 28 mmol/L (21-32); CHLORIDE 105 mmol/L (101-111); CHOL/HDL RATIO 2.6 (<4.4); CHOLESTEROL 138 mg/dL; CREATININE 0.5 mg/dL (0.4-1.0); GFR - MDRD 144 (>89); GLUCOSE 100 mg/dL (70-100); HDL CHOLESTEROL 53 mg/dL; IRON 81 ug/dL (28-170); LDL CHOLESTEROL,CALCULATED 65 mg/dL; LDL/HDL RATIO 1.2 (<4.4); POTASSIUM 3.7 mmol/L (3.5-5.0); SODIUM 138 mmol/L (135-145); TOTAL IRON BINDING CAPACITY 384 ug/dL (250-450); TOTAL PROTEIN 7.6 g/dL (6.7-8.2); TRANSFERRIN 274 mg/dL (192-382); TRIGLYCERIDES 98 mg/dL; VLDL CHOLESTEROL 20 mg/dL
[2021-05-17 13:55] LABS: FREE T4 (FREE THYROXINE) 2.13 ng/dL (0.58-1.64)
== END 2021-05-17 10:40 | disposition home or self-care (01) ==
LOC: LAB.N 10:39
PROVIDERS: ATTEND Internal Medicine
DX: I10 Essential (primary) hypertension (principal); R39.15 Urgency of urination; D62 Acute posthemorrhagic anemia; F32.0 Major depressive disorder, single episode, mild
CPT/HCPCS: 36415; 80053; 80061; 81001; 82728; 83540; 83721; 84439; 84443; 84466; 85025; 87086

== ENCOUNTER 2021-05-22 10:55 | Outpatient (CLI) | payer MEDICAID ==
[2021-05-22 14:35] LABS: THYROID STIMULATING HORMONE < 0.08 uIU/mL (0.34-5.60)
[2021-05-22 14:36] LABS: FREE T3 7.26 pg/mL (2.5-3.9)
[2021-05-22 14:37] LABS: FREE T4 (FREE THYROXINE) 2.47 ng/dL (0.58-1.64)
== END 2021-05-22 10:56 | disposition home or self-care (01) ==
LOC: LAB.N 10:55
PROVIDERS: ATTEND Internal Medicine
DX: E05.90 Thyrotoxicosis, unspecified without thyrotoxic crisis or storm (principal)
CPT/HCPCS: 36415; 81599; 83520; 84439; 84443; 84481

== ENCOUNTER 2021-07-03 21:45 | Emergency (ER) | payer MEDICAID ==
--- NOTE | 2021-07-03 22:03 | ED Physician Documentation ---
History of Present Illness - Stated complaint Stated Complaint: NAUSEA,SOA - Chief complaint Chief Complaint: General - History obtained from History obtained from: Patient - History of Present Illness Timing: Today Pain level max: 0 Pain level now: 0 - Additonal information Additional information: per patient "I think I took my pills twice today thinking that I didn't take them" (in the morning). Patient says she usually takes medication in the AM (methimazole and phentermine) when she wakes up for the day. This afternoon at approximately 3 PM, she started to doubt she took them, not being able to recall doing so, and so she took a dose of each of these medications. She subsequently developed sensation of rapid heart rate and mild nausea and became concerned that she did take the AM dose after all. She called poison control center and was advised to come to ED. Review of Systems Eyes: denies: Decreased vision, Photophobia Ears: denies: Tinnitus/ringing Cardiac: reports: Palpitations. denies: Chest pain / pressure Respiratory: denies: Dyspnea GI: reports: Nausea. 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, Other - Present Medications Home Medications: Ambulatory Orders Medication Instructions Recorded Confirmed Phentermine HCl 37.5 mg PO DAILY 07/03/21 07/03/21 methIMAzole [Methimazole] 10 mg PO DAILY 07/03/21 07/03/21 - Allergies Allergies/Adverse Reactions: Allergies Allergy/AdvReac Type Severity Reaction Status Date / Time No Known Drug Allergies Allergy Verified 07/03/21 21:58 - Social History Does the pt smoke?: Yes Smoking Status: Current every day smoker Does the pt drink ETOH?: Yes ETOH Use: Wine, Beer, Liquor Does the pt have substance abuse?: No - Immunizations Immunizations are current?: Yes PD ED PE NORMAL - Vitals Vital signs reviewed: Yes - General General: Alert and oriented X 3, No acute distress, Well developed/nourished - HEENT HEENT: PERRL, EOMI, Moist mucous membranes - Cardiac Cardiac: No murmur - Respiratory Respiratory: No respiratory distress, Clear bilaterally - Abdomen Abdomen: Normal bowel sounds - Neuro Neuro: Alert and oriented X 3 Eye Opening: Spontaneous Motor: Obeys Commands Verbal: Oriented GCS Score: 15 - Psych Psych: Normal mood, Normal affect PD ED PE EXPANDED - Cardiac Cardiac: Tachy, Regular Rhythm Results - Vitals Vitals: Vital Signs - 24 hr 07/03/21 23:30 Heart Rate 77 Respiratory 17 Rate Blood Pressure 131/80 H O2 Saturation 100 Oxygen O2 Source Room air - EKG (time done) No standard instances Rate: Rate (enter#) (90) Rhythm: NSR [place]: Normal Intervals: Normal [place] QRS: Normal Ischemia: Normal ST segments PD MEDICAL DECISION MAKING - ED course Complexity details: reviewed results, re-evaluated patient, considered differential, d/w patient ED course: ED RN contacted PCC and recommendation is 8 hour observation from time of overdose. She is kept on campus monitor and has some sinus tachycardia 100s- 110s but this gradually trended downwards during observation without specific intervention and NSR 80s-90s on monitor later in stay and on reevaluation prior to discharge. On reevaluation, she tells me she feels well, no longer feels rapid heart rate nor nausea and is comfortable with d/c home. This reevaluation was performed at 11:20 PM. Departure - Departure Disposition: 01 Home, Self Care Clinical Impression: Accidental overdose Qualifiers: Encounter type: initial encounter Qualified Code(s): T50.901A - Poisoning by unspecified drugs, medicaments and biological substances, accidental (unintentional), initial encounter Condition: Good Instructions: ED Overdose Accidental Follow-Up: Yfn Ceballos MD [Primary Care Provider] - Comments: As we discussed, you might consider buying a pill box (such as weekly or monthly); this eliminates confusion when trying to remember if you took your scheduled medications or not. Discharge Date/Time: 07/03/21 23:54
[2021-07-03 23:35] VITALS: BP 131/80
== END 2021-07-03 23:54 | disposition home or self-care (01) ==
LOC: ED 21:45
DX: T38.2X1A Poisoning by antithyroid drugs, accidental (unintentional), initial encounter (principal); T50.5X1A Poisoning by appetite depressants, accidental (unintentional), initial encounter; R00.2 Palpitations; R11.0 Nausea; F17.200 Nicotine dependence, unspecified, uncomplicated
CPT/HCPCS: 93005; 99282; 99284

== ENCOUNTER 2021-07-26 18:56 | Outpatient (CLI) | payer MEDICAID | END 2021-07-26 23:59 | disposition home or self-care (01) | LOC: LAB 18:56 | PROVIDERS: ATTEND Registered Nurse | DX: J06.9 Acute upper respiratory infection, unspecified (principal); Z20.822 Contact with and (suspected) exposure to COVID-19 ==

== ENCOUNTER 2022-02-22 13:23 | Outpatient (CLI) | payer MEDICAID ==
[2022-02-22 18:00] LABS: ALBUMIN 3.7 g/dL (3.2-5.5); BILIRUBIN,TOTAL 0.6 mg/dL (0.2-1.0); CALCIUM 8.7 mg/dL (8.5-10.3); CREATININE 0.6 mg/dL (0.4-1.0); POTASSIUM 3.8 mmol/L (3.5-5.0); TOTAL PROTEIN 7.5 g/dL (6.7-8.2)
[2022-02-22 18:08] LABS: BASOPHILS % (AUTO) 0.3 %; EOSINOPHILS # (AUTO) 0.1 10^3/uL (0.0-0.7); EOSINOPHILS % (AUTO) 1.1 %; HCT - HEMATOCRIT 39.4 % (37.0-47.0); HGB - HEMOGLOBIN 12.1 g/dL (12.0-16.0); LYMPHOCYTES # (AUTO) 2.1 10^3/uL (1.5-3.5); LYMPHOCYTES % (AUTO) 22.7 %; MEAN CORPUSCULAR HEMOGLOBIN 26.8 pg (27.0-31.0); MEAN CORPUSCULAR HGB CONC 30.7 g/dL (32.0-36.0); MEAN CORPUSCULAR VOLUME 87.4 fL (81.0-99.0); MONOCYTES # (AUTO) 0.5 10^3/uL (0.0-1.0); MONOCYTES % (AUTO) 5.9 %; NEUTROPHILS # (AUTO) 6.3 10^3/uL (1.5-6.6); NEUTROPHILS % (AUTO) 69.8 %; PLT - PLATELET COUNT 196 10^3/uL (130-450); RED BLOOD COUNT 4.51 10^6/uL (4.20-5.40); RED CELL DISTRIBUTION WIDTH 15.5 % (12.0-15.0); WHITE BLOOD COUNT 9.1 x10^3/uL (4.8-10.8)
[2022-02-22 18:27] LABS: THYROID STIMULATING HORMONE 3.2 uIU/mL (0.34-5.60)
[2022-02-22 18:29] LABS: FREE T4 (FREE THYROXINE) 0.77 ng/dL (0.58-1.64)
[2022-02-22 20:31] LABS: ESTIMATED AVERAGE GLUCOSE 117 mg/dL (70-100); HEMOGLOBIN A1c% 5.7 % (4.27-6.07)
== END 2022-02-22 13:24 | disposition home or self-care (01) ==
LOC: LAB.N 13:23
PROVIDERS: ATTEND Internal Medicine
DX: E05.00 Thyrotoxicosis with diffuse goiter without thyrotoxic crisis or storm (principal); E88.81 Metabolic syndrome and other insulin resistance
CPT/HCPCS: 36415; 80053; 83036; 84439; 84443; 85025

== ENCOUNTER 2022-06-25 10:10 | Outpatient (CLI) | payer MEDICAID ==
[2022-06-25 19:18] LABS: BASOPHILS # (AUTO) 0.1 10^3/uL (0.0-0.1); BASOPHILS % (AUTO) 0.6 %; EOSINOPHILS # (AUTO) 0.1 10^3/uL (0.0-0.7); EOSINOPHILS % (AUTO) 1.4 %; HCT - HEMATOCRIT 43.1 % (37.0-47.0); LYMPHOCYTES % (AUTO) 25.1 %; MEAN CORPUSCULAR HEMOGLOBIN 27.1 pg (27.0-31.0); MEAN CORPUSCULAR HGB CONC 30.2 g/dL (32.0-36.0); MEAN CORPUSCULAR VOLUME 89.8 fL (81.0-99.0); MEAN PLATELET VOLUME 12.9 fL (7.9-10.8); MONOCYTES # (AUTO) 0.5 10^3/uL (0.0-1.0); NEUTROPHILS # (AUTO) 5.3 10^3/uL (1.5-6.6); NEUTROPHILS % (AUTO) 66.6 %; PLT - PLATELET COUNT 230 10^3/uL (130-450); RED CELL DISTRIBUTION WIDTH 15.1 % (12.0-15.0); WHITE BLOOD COUNT 7.9 x10^3/uL (4.8-10.8)
[2022-06-25 19:49] LABS: THYROID STIMULATING HORMONE 1.73 uIU/mL (0.34-5.60)
[2022-06-25 19:51] LABS: ALBUMIN 4.2 g/dL (3.2-5.5); ALBUMIN/GLOBULIN RATIO 1.2 (1.0-2.2); BILIRUBIN,TOTAL 0.3 mg/dL (0.2-1.0); CALCIUM 8.7 mg/dL (8.5-10.3); CREATININE 0.6 mg/dL (0.4-1.0); POTASSIUM 3.9 mmol/L (3.5-5.0); TOTAL PROTEIN 7.6 g/dL (6.7-8.2)
[2022-06-25 21:00] LABS: ESTIMATED AVERAGE GLUCOSE 111 mg/dL (70-100); HEMOGLOBIN A1c% 5.5 % (4.27-6.07)
== END 2022-06-25 10:11 | disposition home or self-care (01) ==
LOC: LAB.N 10:10
PROVIDERS: ATTEND Internal Medicine
DX: E05.00 Thyrotoxicosis with diffuse goiter without thyrotoxic crisis or storm (principal); E88.81 Metabolic syndrome and other insulin resistance
CPT/HCPCS: 36415; 80053; 83036; 84439; 84443; 85025

== ENCOUNTER 2022-07-05 15:36 | Outpatient (CLI) | payer MEDICAID ==
--- NOTE | 2022-07-05 19:40 | Ultrasound Report ---
PROCEDURE: Pelvic w/Transvaginal INDICATIONS: RIGHT SIDED PELVIC PAIN TECHNIQUE: Real-time scanning was performed of the pelvic organs, with image documentation. Additional endovagi nal scanning was necessary due to incomplete visualization of the adnexal and endometrial structures by transabdominal scanning. COMPARISON: None. FINDINGS: Uterus: Uterus is retroverted and and normal in size at 9.9 x 3.4 x 6.7 cm. The myometrium is heter ogenous. The endometrium measures 9 mm in combined thickness. Right ovary not visualized. Left ovary measures 2.0 x 2.1 x 2.7 cm, and has appropriate echotexture v ascularity. No free fluid or adnexal mass Other: No pathologic free abdominal or pelvic fluid. IMPRESSION: Nonvisualized right ovary No free fluid or adnexal mass Reviewed by: Kirt Jenkins MD on 07/05/2022 6:39 PM [facility] Approved by: Kirt Jenkins MD on 07/05/2022 6:39 PM [facility] Station ID: [id number]
== END 2022-07-05 15:37 | disposition home or self-care (01) ==
LOC: DI 15:36
PROVIDERS: ATTEND Internal Medicine Hematology & Oncology
DX: R10.2 Pelvic and perineal pain (principal); N94.12 Deep dyspareunia

== ENCOUNTER 2022-09-21 18:21 | Outpatient (CLI) | payer MEDICAID | END 2022-09-21 18:22 | disposition short-term general hospital (02) | LOC: EMS 18:21 | DX: S99.911A Unspecified injury of right ankle, initial encounter (principal); X50.9XXA Other and unspecified overexertion or strenuous movements or postures, initial encounter; Y93.89 Activity, other specified; Y92.007 Garden or yard of unspecified non-institutional (private) residence as the place of occurrence of the external cause | CPT/HCPCS: A0425; A0427; A0999 ==

== ENCOUNTER 2022-10-03 09:51 | Outpatient (CLI) | payer MEDICAID ==
--- NOTE | 2022-09-29 11:40 | XRAY Report ---
PROCEDURE: Ankle 3 View RT INDICATIONS: RIGHT ANKLE FRACTURE TECHNIQUE: 3 views of the ankle were acquired. COMPARISON: 09/21/2022, [facility] FINDINGS: Bones: Minimally displaced fracture of the distal fibula at the level of the syndesmosis. Fracture f ragments are in stable position. The ankle mortise remains intact. Soft tissues: No tibiotalar joint effusion. Achilles tendon appears normal. IMPRESSION: Stable position of distal fibular fracture without mortise widening. Reviewed by: Imelda Urbano MD on 09/29/2022 10:39 AM [facility] Approved by: Imelda Urbano MD on 09/29/2022 10:39 AM [facility] Station ID: [id number]
== END 2022-10-03 23:59 | disposition home or self-care (01) ==
LOC: DI.WOS 09:51
PROVIDERS: ATTEND Orthopaedic Surgery Sports Medicine
DX: S82.61XD Displaced fracture of lateral malleolus of right fibula, subsequent encounter for closed fracture with routine healing (principal); S82.831D Other fracture of upper and lower end of right fibula, subsequent encounter for closed fracture with routine healing

== ENCOUNTER 2022-11-29 08:00 | Outpatient (CLI) | payer MEDICAID ==
--- NOTE | 2022-11-29 13:07 | XRAY Report ---
PROCEDURE: Ankle 3 View RT INDICATIONS: RIGHT ANKLE FRACTURE TECHNIQUE: 3 views of the ankle were acquired. COMPARISON: X-ray ankle 09/29/2022 FINDINGS: Bones: Stable appearance of distal fibular fracture. Fracture lucency persists although is last prom inent consistent with interval healing. Ankle mortise is normally aligned. No suspicious bony lesion s. Soft tissues: No tibiotalar joint effusion. Achilles tendon appears normal. IMPRESSION: Interval healing and stable alignment of distal fibular fracture. Reviewed by: Ankita Swenson MD on 11/29/2022 1:06 PM PDT Approved by: Ankita Swenson MD on 11/29/2022 1:06 PM PDT Station ID: [id number]
== END 2022-11-29 23:59 | disposition home or self-care (01) ==
LOC: DI.WOS 08:00
PROVIDERS: ATTEND Orthopaedic Surgery
DX: S82.61XD Displaced fracture of lateral malleolus of right fibula, subsequent encounter for closed fracture with routine healing (principal)

== ENCOUNTER 2023-01-31 08:00 | Outpatient (CLI) | payer MEDICAID ==
--- NOTE | 2023-01-31 15:02 | XRAY Report ---
PROCEDURE: Ankle 3 View RT INDICATIONS: RIGHT ANKLE FRACTURE TECHNIQUE: 3 views of the ankle were acquired. COMPARISON: 11/29/2022 FINDINGS: Bones: Distal left fibular fracture less conspicuous compatible with healing fractures healing in an atomic alignment. Soft tissues: No tibiotalar joint effusion. Achilles tendon appears normal. IMPRESSION: Distal right fibular fracture healing in anatomic alignment. Reviewed by: Radha Arrieta MD, PhD on 01/31/2023 3:01 PM PST Approved by: Radha Arrieta MD, PhD on 01/31/2023 3:01 PM PST Station ID: [id number]
--- NOTE | 2023-01-31 15:03 | XRAY Report ---
PROCEDURE: Foot 3 View RT INDICATIONS: RIGHT FOOT LATERAL PAIN TECHNIQUE: 3 views of the foot were acquired. COMPARISON: None. FINDINGS: Bones: No fractures or dislocations. No suspicious bony lesions. Soft tissues: No suspicious soft tissue calcifications or masses. IMPRESSION: No fracture. No osseous lesion. If symptoms and/or clinical concern for pathology persists, further a ssessment with repeat plain film radiographs (7-10 days) or advanced imaging (CT, MR, bone scan) shou ld be considered. Reviewed by: Radha Arrieta MD, PhD on 01/31/2023 3:02 PM [facility] Approved by: Radha Arrieta MD, PhD on 01/31/2023 3:02 PM [facility] Station ID: [id number]
== END 2023-01-31 23:59 | disposition home or self-care (01) ==
LOC: DI.WOS 08:00
PROVIDERS: ATTEND Orthopaedic Surgery
DX: S82.64XD Nondisplaced fracture of lateral malleolus of right fibula, subsequent encounter for closed fracture with routine healing (principal); M79.671 Pain in right foot

== ENCOUNTER 2023-03-02 12:16 | Outpatient (CLI) | payer SELFPAY ==
[2023-03-02 17:57] LABS: BASOPHILS % (AUTO) 0.5 %; EOSINOPHILS # (AUTO) 0.1 10^3/uL (0.0-0.7); EOSINOPHILS % (AUTO) 1.1 %; HCT - HEMATOCRIT 39.6 % (37.0-47.0); HGB - HEMOGLOBIN 12.5 g/dL (12.0-16.0); LYMPHOCYTES # (AUTO) 1.9 10^3/uL (1.5-3.5); LYMPHOCYTES % (AUTO) 22.7 %; MEAN CORPUSCULAR HEMOGLOBIN 27.5 pg (27.0-31.0); MEAN CORPUSCULAR HGB CONC 31.6 g/dL (32.0-36.0); MEAN PLATELET VOLUME 12.1 fL (7.9-10.8); MONOCYTES # (AUTO) 0.5 10^3/uL (0.0-1.0); MONOCYTES % (AUTO) 5.9 %; NEUTROPHILS # (AUTO) 5.9 10^3/uL (1.5-6.6); NEUTROPHILS % (AUTO) 69.6 %; PLT - PLATELET COUNT 177 10^3/uL (130-450); RED BLOOD COUNT 4.55 10^6/uL (4.20-5.40); RED CELL DISTRIBUTION WIDTH 14.6 % (12.0-15.0); WHITE BLOOD COUNT 8.4 x10^3/uL (4.8-10.8)
[2023-03-02 18:28] LABS: ALBUMIN 4.1 g/dL (3.2-5.5); ALBUMIN/GLOBULIN RATIO 1.4 (1.0-2.2); BILIRUBIN,TOTAL 0.4 mg/dL (0.2-1.0); CREATININE 0.6 mg/dL (0.6-1.3); POTASSIUM 3.4 mmol/L (3.5-4.5); TOTAL PROTEIN 7.1 g/dL (6.4-8.9)
[2023-03-02 18:43] LABS: THYROID STIMULATING HORMONE 0.72 uIU/mL (0.34-5.60)
[2023-03-02 22:32] LABS: ESTIMATED AVERAGE GLUCOSE 108 mg/dL (70-100); HEMOGLOBIN A1c% 5.4 % (4.27-6.07)
== END 2023-03-02 12:17 | disposition home or self-care (01) ==
LOC: LAB.N 12:16
PROVIDERS: ATTEND Internal Medicine
DX: E05.00 Thyrotoxicosis with diffuse goiter without thyrotoxic crisis or storm (principal); E88.810 Metabolic syndrome
CPT/HCPCS: 36415; 80053; 81599; 83036; 83519; 84439; 84443; 85025

== ENCOUNTER 2023-04-13 10:14 | Outpatient (CLI) | payer MEDICAID ==
--- NOTE | 2023-04-13 12:56 | MRI Report ---
PROCEDURE: FOOT WO - RT INDICATIONS: RIGHT FOOT PAIN TECHNIQUE: Noncontrast sagittal T1 spin echo and T2 fast spin echo with fat saturation, long-axis T1 spin echo a nd STIR, short-axis T1 spin echo and T2 fast spin echo with fat saturation through the forefoot. COMPARISON: Right ankle and foot radiographs 01/31/2023. FINDINGS: Image quality: Excellent. Bones and joints: Mild osseous edema and cortical irregularity is seen at the 2nd metatarsal base wi th an adjacent small mildly edematous osseous fragment. Findings are suspicious for a prior fracture with partial healing changes. Minimal dorsal subluxation is seen at the 2nd tarsometatarsal joint. Pr ior injury likely involved portions of the Lisfranc ligament insertion. Visualized portions of the Li sfranc ligament complex demonstrate intermediate intrasubstance signal without definite discontinuity of ligament fibers. Mild osseous edema is also seen at the lateral cuneiform and 4th metatarsal base that may be degenerative or posttraumatic. No significant degenerative changes in the forefoot. Sesa moids are normally aligned. No suspicious intraosseous lesion. Soft tissues: The visualized plantar foot muscles demonstrate normal signal and bulk. Visualized fl exor and extensor tendons appear intact, without tenosynovitis. No soft tissue ganglion cysts. Sagi ttal images demonstrate no evidence for plantar plate tears. IMPRESSION: 1.Osseous edema is seen at the 2nd metatarsal base with cortical irregularity and an adjacent small o sseous fragment, suspicious for a prior fracture with healing changes, likely involving the insertion of the Lisfranc ligament complex. The visualized portions of the Lisfranc ligament demonstrate inter mediate signal intensity without definite discontinuity of fibers, compatible with a prior sprain. Th ere is minimal dorsal subluxation at the 2nd tarsometatarsal joint. 2.Mild osseous edema at the 3rd and 4th tarsometatarsal joints may be related to prior trauma or less likely degenerative changes. Reviewed by: Velasquez Travis MD on 04/13/2023 12:55 PM PST Approved by: Velasquez Travis MD on 04/13/2023 12:55 PM PST Station ID: [id number]
== END 2023-04-13 10:15 | disposition home or self-care (01) ==
LOC: DI 10:14
PROVIDERS: ATTEND Internal Medicine
DX: R93.6 Abnormal findings on diagnostic imaging of limbs (principal)

== ENCOUNTER 2023-08-21 12:24 | Outpatient (CLI) | payer MEDICAID ==
[2023-08-21 17:47] LABS: BASOPHILS % (AUTO) 0.5 %; EOSINOPHILS # (AUTO) 0.1 10^3/uL (0.0-0.7); EOSINOPHILS % (AUTO) 0.7 %; HCT - HEMATOCRIT 42.4 % (37.0-47.0); HGB - HEMOGLOBIN 13.3 g/dL (12.0-16.0); LYMPHOCYTES # (AUTO) 2.2 10^3/uL (1.5-3.5); LYMPHOCYTES % (AUTO) 25.5 %; MEAN CORPUSCULAR HEMOGLOBIN 27.5 pg (27.0-31.0); MEAN CORPUSCULAR HGB CONC 31.4 g/dL (32.0-36.0); MEAN CORPUSCULAR VOLUME 87.8 fL (81.0-99.0); MEAN PLATELET VOLUME 13.2 fL (7.9-10.8); MONOCYTES # (AUTO) 0.6 10^3/uL (0.0-1.0); MONOCYTES % (AUTO) 6.4 %; NEUTROPHILS # (AUTO) 5.8 10^3/uL (1.5-6.6); NEUTROPHILS % (AUTO) 66.6 %; PLT - PLATELET COUNT 199 10^3/uL (130-450); RED BLOOD COUNT 4.83 10^6/uL (4.20-5.40); RED CELL DISTRIBUTION WIDTH 14.5 % (12.0-15.0); WHITE BLOOD COUNT 8.7 x10^3/uL (4.8-10.8)
[2023-08-21 18:21] LABS: THYROID STIMULATING HORMONE 0.52 uIU/mL (0.34-5.60)
[2023-08-21 18:30] LABS: CHOL/HDL RATIO 3.4 (<4.4); CHOLESTEROL 165 mg/dL; HDL CHOLESTEROL 48 mg/dL; LDL CHOLESTEROL,CALCULATED 83 mg/dL; LDL/HDL RATIO 1.7 (<4.4); TRIGLYCERIDES 169 mg/dL (48-352); VLDL CHOLESTEROL 34 mg/dL
[2023-08-21 18:35] LABS: ALBUMIN 4.2 g/dL (3.2-5.5); ALBUMIN/GLOBULIN RATIO 1.3 (1.0-2.2); ALKALINE PHOSPHATASE 103 IU/L (42-121); ALT ALANINE AMINOTRANSFERASE 20 IU/L (10-60); AST ASPARTATE AMINOTRANSFERASE 18 IU/L (10-42); BILIRUBIN,TOTAL 0.4 mg/dL (0.2-1.0); BUN - BLOOD UREA NITROGEN 11 mg/dL (6-20); CALCIUM 9.4 mg/dL (8.5-10.3); CARBON DIOXIDE - CO2 28 mmol/L (21-32); CHLORIDE 106 mmol/L (101-111); CREATININE 0.6 mg/dL (0.6-1.3); GFR - MDRD 115 (>89); GLUCOSE 89 mg/dL (74-104); POTASSIUM 3.7 mmol/L (3.5-4.5); SODIUM 141 mmol/L (135-145); TOTAL PROTEIN 7.4 g/dL (6.4-8.9)
[2023-08-21 19:30] LABS: ESTIMATED AVERAGE GLUCOSE 108 mg/dL (70-100); HEMOGLOBIN A1c% 5.4 % (4.27-6.07)
== END 2023-08-21 12:25 | disposition home or self-care (01) ==
LOC: LAB.N 12:24
PROVIDERS: ATTEND Internal Medicine
DX: I10 Essential (primary) hypertension (principal); E05.00 Thyrotoxicosis with diffuse goiter without thyrotoxic crisis or storm; Z13.220 Encounter for screening for lipoid disorders; R73.01 Impaired fasting glucose
CPT/HCPCS: 36415; 80053; 80061; 83036; 83721; 84439; 84443; 84481; 85025

== ENCOUNTER 2023-10-03 10:39 | Outpatient (CLI) | payer MEDICAID ==
--- NOTE | 2023-10-03 14:45 | XRAY Report ---
PROCEDURE: Ankle 3+V RT INDICATIONS: NONDISPLACED FX OF LATERAL MALLEOLUS R FIBULA TECHNIQUE: 3 views of the ankle were acquired. COMPARISON: Right ankle radiograph dated 01/31/2023, 11/29/2022, 09/30/2019, 09/21/2022. FINDINGS: Bones: Patient's known distal fibular/lateral malleolus fracture has not healed. No acute fracture o r dislocation is seen on the current study. Postsurgical changes are noted in medial aspect of mid fo ot at the level of navicular cuneiform joint suggest clinical correlation. No gross hardware loosenin g or failure. Ankle mortise is normally aligned. No suspicious bony lesions. Soft tissues: No tibiotalar joint effusion. Achilles tendon appears normal. IMPRESSION: Healed distal fibular shaft fracture. No acute fracture or dislocation. Ankle mortise is congruent. Postsurgical changes in medial aspect of mid foot. No gross hardware loosening or failure. Reviewed by: Arsen Branham MD on 10/03/2023 2:43 PM PDT Approved by: Arsen Branham MD on 10/03/2023 2:43 PM PDT Station ID: [id number]
== END 2023-10-03 10:40 | disposition home or self-care (01) ==
LOC: DI 10:39
PROVIDERS: ATTEND Family Medicine
DX: S82.64XD Nondisplaced fracture of lateral malleolus of right fibula, subsequent encounter for closed fracture with routine healing (principal)

== ENCOUNTER 2023-10-30 23:57 | Outpatient (CLI) | payer MEDICAID | END 2023-10-30 23:58 | disposition EMS.NT | LOC: EMS 23:57 | DX: R51.9 Headache, unspecified (principal); I10 Essential (primary) hypertension ==

== ENCOUNTER 2023-11-30 13:04 | Emergency (ER) | payer MEDICAID ==
[2023-11-30 13:20] VITALS: BP 138/90; O2SAT 96
--- NOTE | 2023-11-30 14:22 | ED Physician Documentation ---
PD HPI UPPER EXT INJURY - Stated complaint Stated Complaint: RT LEG PX - Chief complaint Chief Complaint: Ext Problem - History obtained from History obtained from: Patient - Additonal information Additional information: INJURED R LEG ABOUT 1 YR AGO WITH ANKLE FRX, CONSERVATIVELY MANAGED. 8 MOS LATER HAD PAYAL IDENTIFIED THAT SHE HAD BEEN WALKING ON W ORIF R FOOT BY FOOT/ANKLE SPECIALIST AT [facility]. 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 - Present Medications Home Medications: Ambulatory Orders Medication Instructions Recorded Confirmed Phentermine HCl 37.5 mg PO DAILY 07/03/21 07/03/21 methIMAzole [Methimazole] 10 mg PO DAILY 07/03/21 07/03/21 Meloxicam [Mobic] 7.5 mg PO BID PRN #20 tablet 11/30/23 - Allergies Allergies/Adverse Reactions: Allergies Allergy/AdvReac Type Severity Reaction Status Date / Time No Known Drug Allergies Allergy Verified 11/30/23 13:12 - Social History Does the pt smoke?: Yes Smoking Status: Current every day smoker Does the pt drink ETOH?: Yes Does the pt have substance abuse?: No - Immunizations Immunizations are current?: Yes - POLST Patient has POLST: No PD ED PE NORMAL - Vitals Vital signs reviewed: Yes - General General: Alert and oriented X 3 - Extremities Extremities: Other (WELL HEALED SCAR TOP RIGHT FOOT. MILD TTP ANTERIOR ABOVE ANKLE AND LATERAL. NO CALF SWELL/TTP) - Neuro Neuro: Alert and oriented X 3, Normal speech Results - Vitals Vitals: Vital Signs - 24 hr 11/30/23 13:12 Temperature 36.8 C Heart Rate 81 Respiratory 16 Rate Blood Pressure 138/90 H O2 Saturation 96 Oxygen O2 Source Room air - Rads (name of study) R TIBFIB XR= NAD Relevant Findings:: Final report received, EMP independent interpretation of test PD Medical Decision Making - ED course ED course: clinically not c/w dvt ongoing pain, has been referred to pt, but not started yet. Departure - Departure Disposition: 01 Home, Self Care Clinical Impression: Pain of lower extremity Qualifiers: Laterality: right Qualified Code(s): M79.604 - Pain in right leg Condition: Good Record reviewed to determine appropriate education?: Yes Instructions: ED Chronic Pain Management Prescriptions: Meloxicam [Mobic] 7.5 mg PO BID PRN #20 tablet PRN Reason: Pain Comments: I SENT YOUR PRESCRIPTION TO [facility] IN [place]. RECOMMEND YOU START PHYSICAL THERAPY AND SCHEDULE A FOLLOWUP WITH YOUR FOOT/ANKLE SPECIALIST. RETURN IF WORSE. Forms: PCP List Discharge Date/Time: 11/30/23 15:18
[2023-11-30] MEDS: NAPROXEN 250 MG TABLET PO STA (14:26)
--- NOTE | 2023-11-30 15:02 | XRAY Report ---
PROCEDURE: Tib/Fib RT INDICATIONS: leg pain TECHNIQUE: 2 views of the tibia and fibula were acquired. COMPARISON: None. FINDINGS: Bones: No fractures or dislocations. No suspicious bony lesions. Soft tissues: No suspicious soft tissue calcifications or masses. IMPRESSION: No acute bony abnormality. Reviewed by: Sammy Rodney MD on 11/30/2023 3:01 PM PDT Approved by: Sammy Rodney MD on 11/30/2023 3:01 PM PDT Station ID: [id number]
== END 2023-11-30 15:18 | disposition home or self-care (01) ==
LOC: ED 13:04
DX: M79.604 Pain in right leg (principal); F17.200 Nicotine dependence, unspecified, uncomplicated
CPT/HCPCS: 73590; 99283; A9270